=== PATIENT | female | born 1975 | race Caucasian/White ===

== ENCOUNTER 2024-01-15 07:20 | Outpatient (OUT) | payer SELFPAY ==
--- NOTE | 2024-01-15 07:24 | MM_ITS ---
Patient Name: EMMETT LE MR#: [id number] : 1975 Exam Date: 01/15/2024 Ordering Doctor: DR ALBERTO AGUAYO RADIOLOGY REPORT PROCEDURE: MM TOMOSYNTHESIS SCREENING BI COMPARISON: MG MAMM SCREEN 3D RUTHIE CAD, 12/10/2021. MG MAMM SCREEN 3D RUTHIE CAD, 12/15/2022. INDICATIONS: Screening Calculator Name NCI Breast Cancer Risk Assessment Tool 5 Year Breast Cancer Risk 1.30% Lifetime Breast Cancer Risk 12.50% Personal Breast Cancer No Personal Ovarian Cancer No Treatments None Family Cancers Father with prostate cancer at age ~70. LOCATION: [facility] BREAST COMPOSITION: The breasts are heterogeneously dense,which may obscure small masses. FINDINGS: DIAGNOSTIC CATEGORY 1--NEGATIVE. NO CHANGE FROM COMPARISON ASSESSMENT. RIGHT BREAST: No significant suspicious finding. LEFT BREAST: No significant suspicious finding. RECOMMENDATIONS: ROUTINE MAMMOGRAM AND CLINICAL EVALUATION IN 12 MONTHS. PLEASE NOTE: A NORMAL MAMMOGRAM DOES NOT EXCLUDE THE POSSIBILITY OF BREAST CANCER. A CLINICALLY SUSPICIOUS PALPABLE LUMP SHOULD BE BIOPSIED. Dictated by: Alessandro Whipple MD on 01/15/2024 at 11:15 Approved by: Alessandro Whipple MD on 01/15/2024 at 11:16
== END 2024-01-15 07:21 | disposition home or self-care (01) ==
LOC: MAMMO 07:20
PROVIDERS: PCP Family Medicine; Visit Provider Obstetrics & Gynecology
DX: Z12.31 Encounter for screening mammogram for malignant neoplasm of breast (principal); Z80.42 Family history of malignant neoplasm of prostate
CPT/HCPCS: 77063; 77067

== ENCOUNTER 2025-03-03 09:04 | Outpatient (OUT) | payer BC, SELFPAY ==
--- OUTSIDE RECORDS SUMMARY | 2025-03-03 09:09 | XMS_ITS | Encounter Summary ---
Author Organization [facility] Address [address] [place] [address] Care Team Providers Care Data Warehouse Consultant Name Role Phone Beau José DO Primary Care Provider Source Comments In the event this information is protected by the Federal Confidentiality of Alcohol and Drug AbusePatient Records regulations: The Federal rules restrict any use of the information to criminally investigate or prosecute any alcohol or drug abuse patient.[facility] Encounter Details Date Type Department Care Team (Late st Contact Info) Description 11/01/2022 Patient Msg Rheumatology [address] [phone] Provider, Ccf Appointment Rescheduled Social History Tobacco Use Types Packs/Day Years Used Date Smoking Tobacco: Former Cigarettes Q uit: 10/14/2019 Smokeless Tobacco: Former Alcohol Use Standard Drinks/Week Comments Not Currently 0 (1 standard drink = 0.6 oz pur e alcohol) Rarely AUDIT-C Answer Date Recorded Q1: How often do you have a drink containing alc ohol? Monthly or less 07/01/2020 Average Number of Drinks Not on file 020 Frequency of Binge Drinking Not on file 03/2020 PHQ-2 Answer Date Recorded PHQ-2 score 3 11/14/2021 Area Deprivation Index Answer Date Isaac rded National Score (1-100), lower number is lower ri 62 10/16/2022 State Score (1-10), lower number is lower risk N ot on file 10/16/2022 Data from: https://www.neighborhoodatlas.medicine.[facility].edu/. Last address used for calculation [address] 10/16/2022 Comments No Sex and Gender Information Value Date Recorded Sex Assigned at Not on file Legal Sex Female 12:02 PM EDT Gender Identity Not on file Sexual Orientation Not on file documented as of this encounter Plan of Treatment Upcoming Encounters Date Type Department Care Team (Late st Contact Info) Description 03/05/2025 9:00 AM EDT Office Visit Pulmonary Medicine [address] [place] [address] Pulmonary Hypertension: Please make arrangements for the following patient to have a RHC with Dr. Garner on 03/05 at 9am. 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] 03/31/2025 2:00 PM EDT Office Visit Pulmonary Medicine [address] [place] [address] Marlin Morris MD [address] [id number] EST PH pt 5 wk f/u w/Arturo 04/14/2025 10:00 AM EDT Office Visit Rheumatology [address] [address] Debra Ordonez MD [address] [place] [address] 6month follow up per walk up documented as of this encounter Visit Diagnoses Not on filedocumented in this encounter Care Teams Data Warehouse Consultant Relationship Specialty Start Date End Date Beau José DO [address] [place] [address] PCP - General Family Medicine 06/02/20 documented as of this encounter
--- OUTSIDE RECORDS SUMMARY | 2025-03-03 09:09 | XMS_ITS | Encounter Summary ---
Author Organization [facility] Address [address] [place] [address] Care Team Providers Care Spice Blender Name Role Phone Beau José DO Primary Care Provider Source Comments In the event this information is protected by the Federal Confidentiality of Alcohol and Drug AbusePatient Records regulations: The Federal rules restrict any use of the information to criminally investigate or prosecute any alcohol or drug abuse patient.[facility] Encounter Details Date Type Department Care Team (Late st Contact Info) Description 10/25/2022 Get Medical Advice Rheumatology [address] [place] [address] Debra Ordonez MD [address] [place], [place] [phone] Results Social History Tobacco Use Types Packs/Day Years [...] Score (1-100), lower number is lower ri sk 62 10/16/2022 State Score (1-10), lower number is lower risk N ot on file 10/16/2022 Data from: https://www.neighborhoodatlas.medicine.[facility]/. Last address used for calculation [address] [...] AM EDT Office Visit Pulmonary Medicine [address] [place] [address] Pulmonary Hypertension: Please make arrangements for the following patient to have a RHC with Dr. Garner on 03/05 at 9am. 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] 03/31/2025 2:00 PM EDT Office Visit Pulmonary Medicine [address] [address] Marlin Morris MD [address] [place] [address] EST PH pt 5 wk f/u w/Arturo 04/14/2025 10:00 AM EDT Office Visit Rheumatology [address] [address] Debra Ordonez MD [address] [place] [address] 6month follow up per walk up documented as of this encounter Visit Diagnoses Not on filedocumented in this encounter Care Teams Spice Blender Relationship Specialty Start Date End Date Beau José DO [address] [facility] [place] [address] PCP - General Family Medicine 06/02/20 documented as of this encounter
--- OUTSIDE RECORDS SUMMARY | 2025-03-03 09:09 | XMS_ITS | Encounter Summary ---
Author Organization [facility] Address [address] [place] [address] Care Team Providers Care Medical File Clerk Name Role Phone Beau José MD Primary Care Provider + [phone] Reason for Visit * Reason Comments Med Refill Encounter Details Date Type Department Care Team (Late st Contact Info) Description 02/12/2025 Refill [facility] [address] [place] [address] Albert Doshi, AIRCREWMAN [address] [place] [address] Social History Tobacco Use Types Packs/Day Years Used Date Smoking Tobacco: Former Cigarettes 0.5 5 1 11/22/2017 - 09/21/2023 Smokeless Tobacco: Never Alcohol Use Standard Drinks/Week Comments Yes 0 (1 standard drink = 0.6 oz pur e alcohol) Social AUDIT-C Answer Date Recorded Q1: How often do you have a drink containing alc ohol? Monthly or less 12/20/2023 Q2: How many drinks containi ng alcohol do you have on a typical day when you are drinking? 1 or 2 12/20/2023 Q3: How often do you have si x or more drinks on one occasion? Never 12/20/2023 PHQ-2 Answer Date Recorded Patient Health Questionnaire-2 Score 0 12/20/2023 Comments No Sex and Gender Information Value Date Recorded Sex Assigned at Not on file Legal Sex Female 7:33 PM EDT Gender Identity Not on file Sexual Orientation Not on file documented as of this encounter Plan of Treatment Upcoming Encounters Date Type Department Care Team (Late st Contact Info) Description 09/12/2025 9:00 AM EST Office Visit [facility] [address] [facility] [address] Greg Norris, DO [address] [facility] [address] [place] [address] documented as of this encounter Visit Diagnoses Not on filedocumented in this encounter Care Teams Medical File Clerk Relationship Specialty Start Date End Date Beau José MD PCP - General Family Medicine 02/14/23 documented as of this encounter
--- OUTSIDE RECORDS SUMMARY | 2025-03-03 09:09 | XMS_ITS | Encounter Summary ---
Author Organization [facility] Address [address] [facility] [place] [address] Care Team Providers Care Bacteriologist Food Name Role Phone Beau José MD Primary Care Provider [phone] Reason for Visit * Reason Comments Med Refill Encounter Details Date Type Department Care Team (Late st Contact Info) Description 01/28/2024 Refill [facility] [address] [place] [address] Albert Doshi, UNIV[employer] CONSULTANT [address] [place] [address] Unilateral primary osteoarthritis, left knee Social History Tobacco Use Types Packs/Day Years [...] on file documented as of this encounter Miscellaneous Notes * Telephone Encounter - Albert Doshi NP - 01/29/2024 1:51 PM EDT Patient needs appointment * Telephone Encounter - Albert Doshi NP - 01/29/2024 1:51 PM EDT Patient will need appointment if she would like refill. documented in this encounter Plan of Treatment Upcoming Encounters Date Type Department Care Team (Late st Contact Info) Description 09/12/2025 9:00 AM EST Office Visit [facility] [address] [place] [address] Greg Norris, DO [address] [facility] [address] [place] [address] documented as of this encounter Visit Diagnoses Diagnosis Unilateral primary osteoarthritis, left knee documented in this encounter Care Teams Bacteriologist Food Relationship Specialty Start Date End Date Beau José MD PCP - General Family Medicine 02/14/23 documented as of this encounter
--- OUTSIDE RECORDS SUMMARY | 2025-03-03 09:09 | XMS_ITS | Encounter Summary ---
Author Organization [facility] Address [address] [place] [address] Care Team Providers Care Wrapping Machine Operator Name Role Phone Beau José DO Primary Care Provider Source Comments In the event this information is protected by the Federal Confidentiality of Alcohol and Drug AbusePatient Records regulations: The Federal rules restrict any use of the information to criminally investigate or prosecute any alcohol or drug abuse patient.[facility] Encounter Details Date Type Department Care Team (Late st Contact Info) Description 07/07/2022 Patient Msg Cardiology [address] [phone] Provider, Ccf Appointment Cancellation Request Social History Tobacco Use Types Packs/Day Years [...] Score (1-100), lower number is lower ri Not on file 09/01/2020 State Score (1-10), lower number is lower risk N ot on file 09/01/2020 Data from: https://www.neighborhoodatlas.medicine.[facility].edu/. Last address used for calculation Not on file 09/01/2020 Comments No Sex and Gender Information Value Date Recorded Sex Assigned at Not on file Legal Sex Female 12:02 PM EDT Gender Identity Not on file Sexual Orientation Not on file documented as of this encounter Plan of Treatment Upcoming Encounters Date Type Department Care Team (Late st Contact Info) Description 03/05/2025 9:00 AM EDT Office Visit Pulmonary Medicine [address] [place] [address] Pulmonary Hypertension: Please make arrangements for the following patient to have a RHC with Dr. Garner on 03/05 at 9am. 03/19/2025 2:00 PM EDT Office Visit Neurology [address] [place] [address] If I have a problem with sleeping 03/20/2025 8:15 AM EDT Office Visit CARD [facility] 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.9] 03/31/2025 2:00 PM EDT Office Visit Pulmonary Medicine [address] [address] Marlin Morris MD [address] [phone] EST PH pt 5 wk f/u w/Arturo 04/14/2025 10:00 AM EDT Office Visit Rheumatology [address] [address] Debra Ordonez MD [address] [place], [place] [phone] 6month follow up per walk up documented as of this encounter Visit Diagnoses Not on filedocumented in this encounter Care Teams Wrapping Machine Operator Relationship Specialty Start Date End Date Beau José DO [address] [place] [address] PCP - General Family Medicine 06/02/20 documented as of this encounter
--- OUTSIDE RECORDS SUMMARY | 2025-03-03 09:09 | XMS_ITS | Encounter Summary ---
Author Organization [facility] Address [address] [place] [address] Care Team Providers Care Accounting Auditor Name Role Phone Beau José DO Primary Care Provider Source Comments In the event this information is protected by the Federal Confidentiality of Alcohol and Drug AbusePatient Records regulations: The Federal rules restrict any use of the information to criminally investigate or prosecute any alcohol or drug abuse patient.[facility] Encounter Details Date Type Department Care Team (Late st Contact Info) Description 10/05/2022 Patient Msg Rheumatology [address] [phone] Provider, Ccf FMLA Social History Tobacco Use Types Packs/Day Years [...] (1-100), lower number is lower ri sk Not on file 09/01/2020 State Score (1-10), lower number is lower risk N ot on file 09/01/2020 Data from: https://www.neighborhoodatlas.medicine.[facility].edu/. Last address used for calculation Not on [...] AM EDT Office Visit Pulmonary Medicine [address] [place] [address] Pulmonary Hypertension: Please make arrangements for the following patient to have a RHC with Dr. Garner on 03/05 at 9am. 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] 03/31/2025 2:00 PM EDT Office Visit Pulmonary Medicine [address] [address] Marlin Morris MD [address] [place], [place] [phone] EST PH pt 5 wk f/u w/Arturo 04/14/2025 10:00 AM EDT Office Visit Rheumatology [address] [address] Debra Ordonez MD [address] [place], [place] [phone] 6month follow up per walk up documented as of this encounter Visit Diagnoses Not on filedocumented in this encounter Care Teams Accounting Auditor Relationship Specialty Start Date End Date Beau José DO [address] [place] [address] PCP - General Family Medicine 06/02/20 documented as of this encounter
--- OUTSIDE RECORDS SUMMARY | 2025-03-03 09:09 | XMS_ITS | Encounter Summary ---
Author Organization [facility] Address [address] [place] [address] Care Team Providers Care Fee Clerk Name Role Phone Beau José DO Primary Care Provider Source Comments In the event this information is protected by the Federal Confidentiality of Alcohol and Drug AbusePatient Records regulations: The Federal rules restrict any use of the information to criminally investigate or prosecute any alcohol or drug abuse patient.[facility] Encounter Details Date Type Department Care Team (Late st Contact Info) Description 07/07/2022 Patient Msg Cardiology [address] [phone] Provider, Ccf Appointment Cancellation Request Social History [...] N ot on file 09/01/2020 Data from: https://www.neighborhoodatlas.medicine.[facility].edu/. Last address used for calculation Not [...] AM EDT Office Visit Pulmonary Medicine [address] [place] [address] Pulmonary Hypertension: Please make arrangements for the following patient to have a RHC with Dr. Garner on 03/05 at 9am. 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
--- OUTSIDE RECORDS SUMMARY | 2025-03-03 09:09 | XMS_ITS | Encounter Summary ---
Author Organization [facility] Address [address] [place] [address] Care Team Providers Care Motocross Racer Name Role Phone Beau José DO Primary Care Provider Source Comments In the event this information is protected by the Federal Confidentiality of Alcohol and Drug AbusePatient Records regulations: The Federal rules restrict any use of the information to criminally investigate or prosecute any alcohol or drug abuse patient.[facility] Encounter Details Date Type Department Care Team (Late st Contact Info) Description 09/30/2022 Get Medical Advice Rheumatology [address] [phone] Debra Ordonez MD [address] [place] [address] Vitamin d? Social History Tobacco Use Types Packs/Day Years [...] N ot on file 09/01/2020 Data from: https://www.neighborhoodatlas.medicine.[facility]/. Last address used for calculation Not on file 09/01/2020 Comments No Sex and Gender Information Value Date Recorded Sex Assigned at Not on file Legal Sex Female 12:02 PM EDT Gender Identity Not on file Sexual Orientation Not on file documented as of this encounter Plan of Treatment Upcoming Encounters Date Type Department Care Team ([facility] st Contact Info) Description 03/05/2025 9:00 AM EDT Office Visit Pulmonary Medicine [address] [place] [address] Pulmonary Hypertension: Please make arrangements for the following patient to have a RHC with Dr. Garner on 03/05 at 9am. 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 [place] [address] PCP - General Family Medicine 06/02/20 documented as of this encounter
--- OUTSIDE RECORDS SUMMARY | 2025-03-03 09:09 | XMS_ITS | Encounter Summary ---
Author Organization [facility] Address [address] [place] [id number] Care Team Providers Care Exhibits Curator Name Role Phone Beau José DO Primary Care Provider Source Comments In the event this information is protected by the Federal Confidentiality of Alcohol and Drug AbusePatient Records regulations: The Federal rules restrict any use of the information to criminally investigate or prosecute any alcohol or drug abuse patient.[facility] Reason for Visit * Reason Onset Date Comments Refill Request 10/22/2024 Encounter Details Date Type Department Care Team (Late st Contact Info) Description 10/22/2024 Refill Rheumatology [address] [id number] Debra Ordonez MD [address] [place] [id number] Refill Request Social History Tobacco Use Types Packs/Day [...] Frequency of Binge Drinking Not on file 100 03/2020 PHQ-2 Answer Date Recorded PHQ-2 score 3 10/05/2024 Area Deprivation Index Answer Date Isaac rded National Score (1-100), lower number is lower ri sk 59 02/01/2023 State Score (1-10), lower number is lower risk 4 02/01/2023 Data from: https://www.neighborhoodatlas.medicine.[facility]/. Last address used for calculation [address] 02/01/2023 Comments No Sex and Gender Information Value Date Recorded Sex Assigned at Not on file Legal Sex Female 12:02 PM EDT Gender Identity Not on file Sexual Orientation Not on file documented as of this encounter Miscellaneous Notes * Telephone Encounter - Jeaneth Manuel RN - 10/23/2024 9:52 AM EST Images from the original note were not included. Most recent Rheumatology visit: 10/09/2024 (with Debra Ordonez) Last Bone Density on file: None on file Rheumatology Care Team: None on file Recent Office Visits - This Specialty 10/09/2024 SOBOE (shortness of breath on exertion) Rheumatology Debra Ordonez MD 09/29/2023 Limited scleroderma (HCC) Rheumatology Debra Ordonez MD 08/02/2022 Limited scleroderma (HCC) Rheumatology Debra Ordonez MD Upcoming Rheumatology Appointments - Next 365 Days Visit Type Date Time Department [facility] 04/14/2025 10:00 AM [facility] A50 CBC: Latest Ref Rng & Units 09/29/2023 10/09/2024 CBC WBC 3.70 - 11.00 k/uL 6.80 7.45 Hemoglobin 11.5 - 15.5 g/dL 13.3 13.6 Hematocrit 36.0 - 46.0 % 41.4 41.7 Platelet Count 150 - 400 k/uL 215 233 Abs Neut (ANC) 1.45 - 7.50 k/uL 5.14 Abs Lymph 1.00 - 4.00 k/uL 1.72 Vitamin D: Latest Ref Rng & Units 09/29/2023 10/09/2024 Vitamin D Vitamin D 25 Hydroxy 31.0 - 80.0 ng/mL 33.7 34.3 LFT: Latest Ref Rng & Units 09/29/2023 10/09/2024 CMP Sodium 136 - 144 mmol/L 142 139 Potassium 3.7 - 5.1 mmol/L 4.6 4.4 Chloride 98 - 107 mmol/L 105 106 CO2 22 - 30 mmol/L 25 22 Glucose 74 - 99 mg/dL 89 68 BUN 7 - 21 mg/dL 11 16 Creatinine 0.58 - 0.96 mg/dL 0.82 0.73 Calcium 8.5 - 10.2 mg/dL 9.9 9.4 AST 13 - 35 U/L 23 24 ALT 7 - 38 U/L 18 14 Alkaline Phosphatase 34 - 123 U/L 66 71 Hepatic Function: Creatinine: Latest Ref Rng & Units 09/29/2023 10/09/2024 Creatinine Creatinine 0.58 - 0.96 mg/dL 0.82 0.73 ESR/CRP: Latest Ref Rng & Units 02/24/2020 10/09/2024 ESR, WSR WSR 0 - 20 mm/hr 2 5 Latest Ref Rng & Units 02/24/2020 10/09/2024 CRP CRP <0.9 mg/dL 0.1 <0.3 Uric Acid: None on file in the last 6 months Open Standing (Multiple Instance) Lab Orders None Open Future (Single Instance) Lab Orders None documented in this encounter Plan of Treatment Upcoming Encounters Date Type Department Care Team (Late st Contact Info) Description 03/05/2025 9:00 AM EDT Office Visit Pulmonary Medicine [address] [place] [address] Pulmonary Hypertension: Please make arrangements for the following patient to have a RHC with Dr. Garner on 03/05 at 9am. 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] 03/31/2025 1:30 PM EDT Procedure Cardiology [address] [address] Scleroderma, limited (HCC) [M34.9] 03/31/2025 2:00 PM EDT Office Visit Pulmonary Medicine [address] [place] [address] Marlin Morris MD [address] [place] [address] EST PH pt 5 wk f/u w/Arturo 04/14/2025 10:00 AM EDT Office Visit Rheumatology [address] [address] Debra Ordonez MD [address] [place], [place] [id number] 6month follow up per walk up documented as of this encounter Visit Diagnoses Not on filedocumented in this encounter Care Teams Exhibits Curator Relationship Specialty Start Date End Date Beau José DO [address] [facility] [address] PCP - General Family Medicine 06/02/20 documented as of this encounter
--- OUTSIDE RECORDS SUMMARY | 2025-03-03 09:09 | XMS_ITS | Clinical Summary ---
Author Organization [facility] Address [address] [place] [address] Care Team Providers Care Metallurgical Lab Technician Name Role Phone Beau José DO Primary Care Provider + [phone] Allergies Active Allergy Reactions Criticality Noted Date Comments Celecoxib 12/16/2015 Medications Multiple Vitamins-Mineral s (MULTIVITAMIN PO) Take by mouth Active CALCIUM PO Take by mouth Active Ascorbic Acid (VITAMIN C PO) Take by mouth Active Pantoprazole Sodium (PROTONIX PO) Take by mouth Active Active Problems Problem Noted Date Diagnosed Date Puncture wound of right arm with complication Social History Tobacco Use Types Packs/Day Years Used Date Smoking Tobacco: Former Cigarettes 1.5 10 1 11/19/1996 - 09/18/2007 Alcohol Use Standard Drinks/Week Comments Yes 0 (1 standard drink = 0.6 oz pur e alcohol) Comments Unknown Sex and Gender Information Value Date Recorded Sex Assigned at Not on file Legal Sex Female 9:07 PM EST Gender Identity Not on file Sexual Orientation Not on file Last Filed Vital Signs Vital Sign Reading Time Taken Comments Blood Pressure 128/82 01/13/2016 1:34 PM EDT Pulse 75 01/13/2016 1:34 PM EDT Temperature - - Respiratory Rate 18 01/13/2016 1:34 PM EDT Oxygen Saturation - - Inhaled Oxygen Concentration - - Weight 61.2 kg (135 lb) 01/13/2016 1:34 PM EDT s tated Height 152.4 cm (5') 01/13/2016 1:34 PM EDT stat ed Body Mass Index 26.37 01/13/2016 1:34 PM EDT Plan of Treatment Not on file Care Teams Metallurgical Lab Technician Relationship Specialty Start Date End Date Beau José DO PCP - General 01/13/16
--- OUTSIDE RECORDS SUMMARY | 2025-03-03 09:09 | XMS_ITS | Clinical Summary ---
Author Organization [facility] Address [address] [place] [address] Care Team Providers Care Aco Coordinator Name Role Phone Beau José MD Primary Care Provider [phone] Allergies No known active allergies Medications esomeprazole (NexIUM) [address] capsule 1 capsule every 12 (twelve) hours. Active PARoxetine (Paxil) 10 MG tablet 1 (one) time each day at the same time. Active loratadine (Claritin Reditabs) 10 MG disintegrating tablet Take 10 mg by mouth in the morning. Active Multiple Vitamin (Multi-Vitamin) tablet Take 1 tablet by mouth in the morning. Active busPIRone (Buspar) 5 MG tablet Take 5 mg by mouth Daily 4 Active NIFEdipine XL (Procardia XL) 60 MG 24 hr tablet Take 60 mg by mouth Daily 4 Active cycloSPORINE (Restasis) 0.05 % ophthalmic emulsion Administer 1 drop into both eyes every 12 (twelve) hours 4 Active Active Problems Problem Noted Date Diagnosed Date Abnormal cytological finding s in specimens from other organs, systems and tissues 02/14/2023 Acute pain of left knee 02/14/2023 Bowel incontinence 02/14/2023 Depression 02/14/2023 Disorder of breast 02/14/2023 Dyspareunia in female 02/14/2023 Hallux valgus (acquired), left foot 02/14/2023 Hallux valgus (acquired), right foot 02/14/2023 Internal derangement of left knee 02/14/2023 Unilateral primary osteoarthritis, left knee Perioral dermatitis 02/14/2023 Post-void dribbling 02/14/2023 Smoking 02/14/2023 Encounters Date Type Department Care Team Description 02/12/2025 Refill [facility] [address] [place] [id number] Albert Doshi, COMMUNICATIONS INSTRUCTOR from Last 3 Months Family History Medical History Relation Name Comments Cancer Father Dad Prostate cancer Father Dad Breast cancer Father's Sister Britta Diabetes Mother Mom Breast cancer Other Relation Name Status Comments Father Dad Father's Sister Britta Mother Mom Alive Other Paternal Aunt Social History Tobacco Use Types Packs/Day Years Used Date Smoking Tobacco: Former Cigarettes 0.5 5 1 11/22/2017 - 09/21/2023 Smokeless Tobacco: Never Tobacco Cessation:Counseling Given: Not Answered Alcohol Use Standard Drinks/Week Comments Yes 0 [...] Sign Reading Time Taken Comments Blood Pressure 118/80 08/30/2024 8:57 AM EST Pulse - - Temperature - - Respiratory Rate - - Oxygen Saturation - - Inhaled Oxygen Concentration - - Weight 54.4 kg (120 lb) 08/30/2024 8:57 AM EST Height 152.4 cm (5') 06/18/2023 10:48 PM EDT Body Mass Index 23.44 06/18/2023 10:48 PM EDT Plan of Treatment Upcoming Encounters Date Type Department Care Team (Late st Contact Info) Description 09/12/2025 9:00 AM EST Office Visit [facility] [address] [place] [address] Greg Norris, DO [address] [place] [address] Insurance BCBS Care Teams Aco Coordinator Relationship Specialty Start Date End Date Beau José MD PCP - General Family Medicine 02/14/23
--- OUTSIDE RECORDS SUMMARY | 2025-03-03 09:09 | XMS_ITS | Clinical Summary ---
Author Organization [facility] Address [address] [place] [address] Care Team Providers Care Residential Carpet Installer Name Role Phone Beau José DO Primary Care Provider Allergies No known active allergies Medications multivitamin tablet Take 1 tablet by mouth once daily. Active esomeprazole (NEXIUM) 40 mg capsule Take 40 mg by mouth twice daily. Active PARoxetine (PAXIL) 10 mg tablet Take 10 mg by mouth once daily. Active busPIRone (BUSPAR) 5 mg tablet Take 5 mg by mouth once daily. Active oxybutynin ER (DITROPAN XL) 10 mg 24 hr tabletIndicatio ns:Bladder spasm Take 1 tablet by mouth once daily as needed. 30 tablet 1 1 Active celecoxib (CELEBREX ORAL) Take by mouth. Active NIFEdipine ER (PROCARDIA XL) 60 mg 24 hr tablet Take 1 tablet by mouth once daily. 90 tablet 3 5 Active ASHWAGANDHA EXTRACT ORAL Take 150 mg by mouth once daily. Active cranberry extract-vitamin C 250-60 mg cap Take by mouth once daily. 025 Discontinued Lactobacillus acidophilus (PROBIOTIC ORAL) Take by mouth. 025 Discontinued nitrofurantoin monohyd/m-cryst (MACROBID ORAL) Take by mouth two times a day. 025 Discontinued OTC PRODUCT Immune defense with acai ferrer elderberry, goji ferrer, echinacea, turmeric, vitamin c, luís, zinc black currant 025 Discontinued OTC PRODUCT once daily. 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 Raynaud's phenomenon without gangrene 02/26/2020 Depressive disorder 02/24/2020 Irritable bowel syndrome 02/24/2020 Migraine 02/24/2020 Mitral valve prolapse 02/24/2020 Ulcerative esophagitis 12/01/2018 Esophageal dysmotility 01/01/2017 Anxiety 03/11/2016 Cyst of ovary 03/11/2016 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 Posttraumatic stress disorder 03/11/2016 Encounters Date Type Department Care Team Description 03/02/2025 Travel 02/28/2025 Orders Only Pulmonary Medicine [address] [address] Steve Garner, SOBOE (shortness of breath on exertion) (Primary Dx) 02/25/2025 Telephone Pulmonary Medicine [address] [address] Alessandro Díaz MA Appointment Confirmation 02/24/2025 Abstract [facility] [address] [facility] [place] [id number] [facility] 02/12/2025 Telephone Pulmonary Medicine [address] [address] Alessandro Díaz MA Care Coordination 02/10/2025 11:00 AM EDT Office Visit Pulmonary Medicine [address] [address] Marlin Morris MD 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 [place] [address] Other secondary pulmonary hypertension (HCC) [I27.29] Discharge Disposition: Home 01/28/2025 8:05 AM EDT - 01/28/2025 11:59 PM EDT Hospital Encounter Radiology [address] [place] [address] Interstitial pulmonary disease (HCC) [J84.9] Discharge Disposition: Home 01/21/2025 Travel 01/13/2025 9:00 AM EDT Office Visit Pulmonary Medicine [address] [place], [place] [address] Marlin Morris MD Interstitial pulmonary disease (HCC) (Primary Dx); Other secondary pulmonary hypertension (HCC); Pulmonary hypertension (HCC); History of tobacco use; Raynaud's phenomenon without gangrene; Palpitations 01/13/2025 8:15 AM EDT Procedure Pulmonary Medicine [address] [place] [id number] Yazan Butler Fct Lab Main 6 Spirometry 01/07/2025 Get Medical Advice Rheumatology [address] [place] [phone] Debra Del Valle MD Pulmonary appointment 01/01/2025 Orders Only Pulmonary Medicine [address] [place] [id number] Callie Pickens APRN.PRINTING TABLE HAND Primary pulmonary hypertension (HCC) (Primary Dx) 01/01/2025 Telephone Pulmonary Medicine [address] [place] [id number] Autumn Quispe, RN Opened In Error 01/01/2025 Get Medical Advice Rheumatology [address] [address] Debra Del Valle MD Test results 01/01/2025 Telephone Pulmonary Medicine [address] [address] Provider, [facility] Appointment 12/31/2024 Get Medical Advice Rheumatology [address] [address] Debra Del Valle MD Test results 12/18/2024 2:30 PM EDT Procedure Pulmonary Medicine [address] [address] Yazan Butler [facility]ct Lab Main 6 Spirometry 12/18/2024 2:15 PM EDT Procedure Pulmonary Medicine [address] [address] Yazan Butler Fct Lab Main 6 Spirometry 12/16/2024 Travel from Last 3 Months Immunizations Immunization Administration Dates Next Due tetanus diphtheria pertussis (Tdap) vaccine, age 7+ yr (ADACEL, BOOSTRIX) 06/21/2019,02/10/2012 Family History Medical History Relation Comments Prostate Cancer Father Cancer Maternal Grandfather Bone Breast Cancer Paternal Aunt Relation Status Comments Father Maternal Grandfather Paternal Aunt Social History Tobacco Use Types [...] is lower risk 4 02/01/2023 Data from: https://www.neighborhoodatlas.medicine.[facility].edu/. Last address used for calculation [address] 02/01/2023 Comments No Sex and Gender Information Value Date Recorded Sex Assigned at Not on file Legal Sex Female 12:02 PM EDT Gender Identity Not on file Sexual Orientation Not on file Last Filed Vital Signs Vital Sign Reading Time Taken Comments Blood Pressure 118/60 02/10/2025 10:52 AM EDT Pulse 64 02/10/2025 10:52 AM EDT Temperature 36.5 C (97.7 F) 02/10/2025 10:52 AM EDT Respiratory Rate 16 02/10/2025 10:52 AM EDT Oxygen Saturation 100% 02/10/2025 10:52 AM EDT Inhaled Oxygen Concentration - - Weight 55 kg (121 lb 4.1 oz) 02/10/2025 10:52 AM EDT Height 152.4 cm (5') 01/13/2025 8:12 AM EDT Body Mass Index 23.68 01/13/2025 8:12 AM EDT Plan of Treatment Upcoming Encounters Date Type Department Care Team (Late st Contact Info) Description 03/05/2025 9:00 AM EDT Office Visit Pulmonary Medicine [address] [place] [address] Pulmonary Hypertension: Please make arrangements for the following patient to have a RHC with Dr. Garner on 03/05 at 9am. 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.89, N08] 03/31/2025 1:30 PM EDT Procedure Cardiology [address] [address] Scleroderma, limited (HCC) [M34.9] 03/31/2025 2:00 PM EDT Office Visit Pulmonary Medicine [address] [address] Marlin Morris MD [address] [address] EST PH pt 5 wk f/u w/Arturo 04/14/2025 10:00 AM EDT Office Visit Rheumatology [address] [address] Debra Del Valle MD [address] [place] [address] 6month follow up per walk up Health Maintenance Due Date Last Done Comments Hepatitis B Vaccine (1 of 3 - 19+ 3-dose series) 1994 Cervical Cancer Screening 1996 CT Colonography 2020 Fecal Occult Blood 2020 Sigmoidoscopy 2020 Mammogram Screening 12/16/2023 12/15/2022, 12/10/2021, 12/07/2021, Additional history exists Colonoscopy 02/02/2024 02/01/2023 Covid-19 Vaccine ( - 2023-2 5 season) 2024 Cologuard (FIT-DNA) 11/02/2024 11/02/2021 Colorectal Cancer Screening 11/02/2024 Influenza Vaccine (Season Ended) 2025 Diabetes Screening 10/09/2027 10/09/2024, 0 09/29/2023, 08/16/2023, Additional history exists Lipid Screening 08/16/2028 08/16/2023 DTaP,Tdap,Td Vaccine (3 - Td or Tdap) 06/21/2029 06/21/2019, 02/10/2012 HIV Screening Completed 01/13/2025 Hepatitis C Screening Completed 01/13/2025 , 01/13/2025, 06/12/2020 Procedures Procedure Name Priority Date/Time Associated Diagnosis Comments NM LUNG VENT / PERF VQ Routine 9:28 AM EDT Other secondary pulmonary hypertension (HCC) CT CHEST WO IVCON Routine 01/28/2025 8:2 2 AM EDT Interstitial pulmonary disease (HCC) HEP B CORE AB TOTAL Routine 01/13/2025 1 0:42 AM EDT Other secondary pulmonary hypertension (HCC) HEP B SURF AB QUAL Routine 01/13/2025 10 :42 AM EDT Other secondary pulmonary hypertension (HCC) HEP B SURF AG SCRN Routine 01/13/2025 10 :42 AM EDT Other secondary pulmonary hypertension (HCC) HEPATITIS C ANTIBODY IA WITH CONFIRMATION Routine 01/13/2025 10:42 AM EDT Other secondary pulmonary hypertension (HCC) HIV 1/2 COMBO WITH REFLEX TO DIFFERENTIATION Routine 01/13/2025 10:42 AM EDT Other secondary pulmonary hypertension (HCC) TSH W/REFLEX FT4 Routine 01/13/2025 10:4 2 AM EDT Other secondary pulmonary hypertension (HCC) NT PRO BNP Routine 01/13/2025 10:42 AM EDT Other secondary pulmonary hypertension (HCC) HEP REMOTE PANEL BL Routine 01/13/2025 1 0:42 AM EDT Other secondary pulmonary hypertension (HCC) SIX MINUTE WALK Routine 01/13/2025 8:14 AM EDT Primary pulmonary hypertension (HCC) LVEF TRANSTHORACIC ECHO Routine 12/19/19 3:13 PM EDT ECHO Routine 12/18/2024 3:13 PM EDT SOBOE (shortness of breath on exertion) Limited scleroderma (HCC) LUNG DIFFUSION CAPACITY (DLCO) Routine 12/18/2024 1:48 PM EDT SOBOE (shortness of breath on exertion) Limited scleroderma (HCC) SPIROMETRY BASELINE ONLY Routine 12/18/2024 1:48 PM EDT SOBOE (shortness of breath on exertion) Limited scleroderma (HCC) COMPREHENSIVE METABOLIC PANEL Routine 10/09/2024 10:34 AM EST SOBOE (shortness of breath on exertion) Limited scleroderma (HCC) COLONOSCOPY (THERAPEUTIC) Routine 02/01/2023 10:30 AM EDT from Last 3 Months or Most Recently Relevant to Health Maintenance Results * NM LUNG VENT / PERF VQ (01/28/2025 9:28 AM EDT) Anatomical Region Laterality Modality Lung Nuclear Medicine 01/28/2025 9:28 AM EDT Impressions 01/28/2025 9:55 AM EDT IMPRESSION: No mismatched perfusion defects. Very low probability exam for acute pulmonary embolism. Cook Sauce: PSCB Transcribe Date/Time: Jan 28 2025 9:42A Dictated by : JAMEY FERNANDEZ DO This examination was interpreted and the report reviewed and electronically signed by: JAMEY FERNANDEZ DO on Jan 28 2025 9:53AM EST Narrative 01/28/2025 9:55 AM EDT * * *Final Report* * * DATE OF EXAM: Jan 28 2025 9:28AM FVN 0032 - NM LUNG VENT / PERF VQ / PROCEDURE REASON: Other secondary pulmonary hypertension (HCC) * * * * Physician Interpretation * * * * EXAMINATION: PULMONARY VENTILATION/PERFUSION SCAN CLINICAL HISTORY: Pulmonary hypertension. TECHNIQUE: 0.8 millicuries of Tc-99m DTPA aerosol was inhaled. 6.0 millicuries of Tc-99m MAA was administered IV. Static planar pulmonary ventilation and perfusion images obtained in anterior, posterior, lateral, and oblique projections. COMPARISON: No prior V/Q scan available CORRELATION: CT chest 01/28/2025 RESULT: Exam Interpretation criteria: Modified PIOPED II Ventilation: Fairly homogenous radiotracer accumulation in both lungs. Perfusion: No mismatched or matched defects. Procedure Note Provider, [facility] [place] - 01/28/2025 * * *Final Report* * * DATE OF EXAM: Jan 28 2025 9:28AM FVN 0032 - NM LUNG VENT / PERF VQ / PROCEDURE REASON: Other secondary pulmonary hypertension (HCC) * * * * Physician Interpretation * * * * EXAMINATION: PULMONARY VENTILATION/PERFUSION SCAN CLINICAL HISTORY: Pulmonary hypertension. TECHNIQUE: 0.8 millicuries of Tc-99m DTPA aerosol was inhaled. 6.0 millicuries of Tc-99m MAA was administered IV. Static planar pulmonary ventilation and perfusion images obtained in anterior, posterior, lateral, and oblique projections. COMPARISON: No prior V/Q scan available CORRELATION: CT chest 01/28/2025 RESULT: Exam Interpretation criteria: Modified PIOPED II Ventilation: Fairly homogenous radiotracer accumulation in both lungs. Perfusion: No mismatched or matched defects. IMPRESSION IMPRESSION: No mismatched perfusion defects. Very low probability exam for acute pulmonary embolism. Cook Sauce: STEVE Transcribe Date/Time: Jan 28 2025 9:42A Dictated by : JAMEY FERNANDEZ DO This examination was interpreted and the report reviewed and electronically signed by: JAMEY FERNANDEZ DO on Jan 28 2025 9:53AM EST us Marlin Morris MD NM-PAMA Final Result * CT CHEST WO IVCON (01/28/2025 8:22 AM EDT) Anatomical Region Laterality Modality Chest Computed Tomogra phy 01/28/2025 8:22 AM EDT Impressions 01/28/2025 8:33 AM EDT IMPRESSION: No major interval change compared to prior examination with no convincing findings of developing pulmonary fibrosis. There is again dilatation of the entire esophagus in keeping with history of scleroderma. Cook Sauce: [facility] Transcribe Date/Time: Jan 28 2025 8:27A Dictated by : GALE DEJESUS MD This examination was interpreted and the report reviewed and electronically signed by: GALE DEJESUS MD on Jan 28 2025 8:31AM EST Narrative 01/28/2025 8:33 AM EDT * * *Final Report* * * DATE OF EXAM: Jan 28 2025 8:22AM FVC 0541 - CT CHEST WO IVCON / PROCEDURE REASON: Interstitial pulmonary disease (HCC) * * * * Physician Interpretation * * * * EXAMINATION: CHEST CT WITHOUT CONTRAST CLINICAL HISTORY: Interstitial lung disease Technique: Spiral CT acquisition of the chest from the thoracic inlet to the upper abdomen without contrast. MQ: CTCWO_6 CT Radiation dose: Integrated Dose-length product (DLP) for this visit = 131 mGy*cm CT Dose Reduction Employed: Automated exposure control(AEC) and iterative recon Comparison: 03/17/2021 RESULT: Limitations: None. Lines, tubes, and devices: None. Lung parenchyma and airways: No consolidation. No suspicious pulmonary nodule. The central airways are patent. No findings of interlobular septal thickening, traction bronchiectasis and honeycombing. No groundglass opacities. There is no air trapping. No findings of excessive dynamic airway collapse. Pleural space: No pleural effusion. No pleural thickening. Lower neck, lymph nodes, and mediastinum: The imaged thyroid gland is normal. No lymphadenopathy in the supraclavicular, axillary, mediastinal, or hilar regions. The entire esophagus is again markedly dilated and contains debris. Heart, pericardium, and thoracic vessels: The thoracic aorta and main pulmonary artery are normal in caliber. The cardiac chambers are normal in size. No coronary artery atherosclerotic calcifications are noted, although the study is not optimized for coronary assessment. No pericardial effusion or thickening. Bones and soft tissues: No destructive bone lesion. Chest wall is unremarkable. Upper abdomen: No abnormality in the imaged upper abdomen. Localizer images: No additional findings. Procedure Note Provider, [facility] - 01/28/2025 * * *Final Report* * * DATE OF EXAM: Jan 28 2025 8:22AM FVC 0541 - CT CHEST WO IVCON / PROCEDURE REASON: Interstitial pulmonary disease (HCC) * * * * Physician Interpretation * * * * EXAMINATION: CHEST CT WITHOUT CONTRAST CLINICAL HISTORY: Interstitial lung disease Technique: Spiral CT acquisition of the chest from the thoracic inlet to the upper abdomen without contrast. MQ: CTCWO_6 CT Radiation dose: Integrated Dose-length product (DLP) for this visit = 131 mGy*cm CT Dose Reduction Employed: Automated exposure control(AEC) and iterative recon Comparison: 03/17/2021 RESULT: Limitations: None. Lines, tubes, and devices: None. Lung parenchyma and airways: No consolidation. No suspicious pulmonary nodule. The central airways are patent. No findings of interlobular septal thickening, traction bronchiectasis and honeycombing. No groundglass opacities. There is no air trapping. No findings of excessive dynamic airway collapse. Pleural space: No pleural effusion. No pleural thickening. Lower neck, lymph nodes, and mediastinum: The imaged thyroid gland is normal. No lymphadenopathy in the supraclavicular, axillary, mediastinal, or hilar regions. The entire esophagus is again markedly dilated and contains debris. Heart, pericardium, and thoracic vessels: The thoracic aorta and main pulmonary artery are normal in caliber. The cardiac chambers are normal in size. No coronary artery atherosclerotic calcifications are noted, although the study is not optimized for coronary assessment. No pericardial effusion or thickening. Bones and soft tissues: No destructive bone lesion. Chest wall is unremarkable. Upper abdomen: No abnormality in the imaged upper abdomen. Localizer images: No additional findings. IMPRESSION IMPRESSION: No major interval change compared to prior examination with no convincing findings of developing pulmonary fibrosis. There is again dilatation of the entire esophagus in keeping with history of scleroderma. Cook Sauce: PSCB Transcribe Date/Time: Jan 28 2025 8:27A Dictated by : GALE DEJESUS MD This examination was interpreted and the report reviewed and electronically signed by: GALE DEJESUS MD on Jan 28 2025 8:31AM EST us Marlin Morris MD CT-PAMA Final Result * TSH W/REFLEX FT4 (01/13/2025 10:42 AM EDT) TSH 1.480 0.270 - 4.200 mIU/L 01/13/2025 3:16 PM EDT [facility] Comment: If the patient is , TSH reference range varies by gestational period: First Trimester (weeks 9-12): 0.180-2.990 mIU/L Second Trimester: 0.110-3.980 mIU/L Third Trimester: 0.480-4.710 mIU/L Hernán Goldstein et al. A Practical Approach for the Verifications and Determination of Site- and Trimester-Specific Reference Intervals for Thyroid Function tests in . Thyroid, 2019:29:3:412-420. Jason Morejon, et al. 2017 Guidelines of the [place] Thyroid Association for the Diagnosis and Management of Thyroid Disease during and the . Thyroid, 2017:27:3:315-389. Blood BLOOD SPECIMEN / Unknown Venipuncture / Unknown 01/13/2025 10:42 AM EDT 01/13/2025 10:42 AM EDT us Marlin Morris MD LABORATORY Final Result [facility] [address] [address], [place] * HIV 1/2 COMBO WITH REFLEX TO DIFFERENTIATION (01/13/2025 10:42 AM EDT) HIV 12 Combo (Ag/Ab) Nonreactive Nonreactive 01/13/2025 2:20 PM EDT [facility] HIV-1/2 AB (Confirmatory) 01/13/2025 2:20 PM EDT [facility] Comment:Test not indicated. HIV Interpretation 01/13/2025 2:20 PM EDT [facility] Comment: No evidence of HIV-1 or HIV-2 infection. Should recent infection be suspected, repeat testing may be considered 2-3 weeks after this draw. [place] Rev. Code 3701.243(E): This information has been disclosed to you from confidential records protected from disclosure by state law. You shall make no further disclosure of this information without the specific, written, and informed release of the individual to whom it pertains or as otherwise permitted by state law. A general authorization for the release of medical or other information is not sufficient for the purpose of the release of HIV test results or diagnoses. Blood BLOOD SPECIMEN / Unknown Venipuncture / Unknown 01/13/2025 10:42 AM EDT 01/13/2025 10:42 AM EDT Marlin Morris MD LABORATORY Final Result [facility] [address] [address], [place] * NT PRO BNP (01/13/2025 10:42 AM EDT) NT Pro BNP 75 <125 pg/mL 01/13/2025 3:15 PM EDT [facility] Blood BLOOD SPECIMEN / Unknown Venipuncture / Unknown 01/13/2025 10:42 AM EDT 01/13/2025 10:42 AM EDT Marlin Morris MD LABORATORY Final Result [facility] [address] [facility] [address] [address], [place] * HEPATITIS B SURFACE ANTIGEN (01/13/2025 10:42 AM EDT) HBsAg Negative Negative 01/13/2025 2:19 PM EDT [facility] Blood BLOOD SPECIMEN / Unknown Venipuncture / Unknown 01/13/2025 10:42 AM EDT 01/13/2025 10:42 AM EDT Marlin Morris MD LABORATORY Final Result Performing Organization Address [facility]/ZIP Co de Phone Number [facility] [address] [place] [id number], [place] * HEPATITIS B SURFACE ANTIBODY (01/13/2025 10:42 AM EDT) Hep B Surface Ab, Qual Negative 01/13/2025 2:20 PM EDT [facility] Comment:No serological evide nce of immunity to Hepatitis B Virus. Hep B Surface Ab Quant <8.00 mIU/mL 01/13/2025 2:20 PM EDT [facility] Comment: <8 mIU/mL: No serological evidence of immunity to Hepatitis B Virus. >/= 8 to <12 mIU/mL: No serological evidence of immunity to Hepatitis B Virus. >/= 12 mIU/mL: Consistent with serological evidence of immunity to Hepatitis B Virus. Blood BLOOD SPECIMEN / Unknown Venipuncture / Unknown 01/13/2025 10:42 AM EDT 01/13/2025 10:42 AM EDT Marlin Morris MD LABORATORY Final Result Performing Organization Address City/[facility]/ZIP Co de Phone Number [facility] [address] [place] [id number], [place] * HEPATITIS B CORE ANTIBODY TOTAL (01/13/2025 10:42 AM EDT) Hepatitis B Core Ab, Total Negative Negative 01/13/2025 2:22 PM EDT [facility] Comment:No evidence of curre nt or past infection with Hepatitis B virus. Should recent infection be suspected, repeat testing may be considered 3-4 weeks after this draw. Blood BLOOD SPECIMEN / Unknown Venipuncture / Unknown 01/13/2025 10:42 AM EDT 01/13/2025 10:42 AM EDT us Marlin Morris MD LABORATORY Final Result Performing Organization Address City/[facility]/ZIP Co de Phone Number [facility] [address] [place] [address], * HEPATITIS C ANTIBODY IA WITH CONFIRMATION (01/13/2025 10:42 AM EDT) [facility] Hep C Antibody IA Negative Negative 01/13/2025 4:23 PM EDT [facility] Comment:The result suggests no evidence of infection with Hepatitis C virus. Should recent infection be suspected, repeat testing may be considered 4-6 weeks after this draw. Blood BLOOD SPECIMEN / Unknown Venipuncture / Unknown 01/13/2025 10:42 AM EDT 01/13/2025 10:42 AM EDT Marlin Morris MD LABORATORY Final Result Performing Organization Address [facility] Co de Phone Number [facility] [address] [place] [address], * SIX MINUTE WALK (01/13/2025 8:14 AM EDT) 01/13/2025 8:14 AM EDT Narrative Donaldo Lemus MD - 01/13/2025 8:15 AM EDT Donaldo Lemus MD 01/13/2025 8:52 AM RESPIRATORY THERAPY SIX MINUTE WALK TEST OXIMETRY REPORT Six Minute Walk Test for This Encounter Oxygen Device Liters FIO2 SpO2% HR Activity Feet Speed (MPH) Flag R/A 100 71 Resting R/A 99 89 Six Minute Walk 1165 2.2 R/A 100 78 Recovery 1 minute post R/A 100 70 Recovery 2 minute post R/A 100 66 Recovery 3 minute post General Information Height Weight Pulse Oximetry Site Oximeter Pre Blood Pressure Post Blood Pressure Total Time Spent (min) 152.4 cm (5') 54.8 kg (120 lb 13 oz) Forehead Masimo 134/75 135/71 30 _ Distance Walked (meters) Distance Walked (feet) Female Predicted Walk Distance (feet) Female Lower Limit of Normal (feet) Female % Predicted Total Duration Of The Stops (seconds) 355.09 1165 1902.56 1446.56 61.2 -- _ Lowest SpO2 During 6 Minute Walk Pre-Lizzeth Dyspnea Rating Pre-Lizzeth Fatigue Rating Post Lizzeth Dyspnea Rating Post Lizzeth Fatigue Rating 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 complained of slight chest pain to begin the test and that increased to moderate post test; Pt stated slight chest pain is her normal The patient completed the six minute walk test with No stops. . The patient required Room Air to complete the test. The distance the patient walked in six minutes is moderately reduced. This is the first time patient takes the six minute walk test. The patient perceived their dyspnea during the six minute walk test to be 3-Moderate on the modified Lizzeth scale. The patient perceived their fatigue during the six minute walk test to be 1-Very slight on the modified Lizzeth scale. I have reviewed the findings and made appropriate revisions as needed. SIGNATURE: Donaldo Lemus MD PATIENT NAME: Emmett Qiu DATE: January 13, 2025 TIME: 8:52 AM us Callie Pickens SENIOR IT ARCHITECT.PRINTING TABLE HAND SCHEDULED PROCEDURES Final Result * ECHO (12/18/2024 3:13 PM EDT) 12/18/2024 3:13 PM EDT [facility] - 12/18/2024 4:06 PM EDT CONCLUSIONS: - Exam indication: Dyspnea on exertion - The left ventricle is normal in size. Left ventricular systolic function is normal. EF = 68 5% (2D biplane) Grade I left ventricular diastolic dysfunction. - The right ventricle is normal in size. Right ventricular systolic function is normal. - Estimated right ventricular systolic pressure is likely underestimated due to a weak or incomplete tricuspid regurgitation signal and is, at least, 42 mmHg consistent with mild pulmonary hypertension. Estimated right atrial pressure is 15 mmHg based on IVC assessment. - Exam was compared with the prior CC echocardiographic exam performed on 10/18/2022. RVSP higher today. * * * Final * * * [facility] - 12/18/2024 4:06 PM EDT Echocardiography Report: Transthoracic Echo [facility] A17 Date of service: 12/18/2024 3:13:43 PM SCHEDULER Ordering physician: DEBRA DEL VALLE Indication: Dyspnea on exertion Technologist: Esther Patel Interpreting physician: Raffy Karimi MD PATIENT: Name: EMMETT QIU : 1975 Age: 49 years Gender: F History of Limited Scleroderma. Primary rhythm: sinus. Height: 152.40 cm BSA: 1.52 m Weight: 54.70 kg BMI: 23.6 kg/m Heart rate 60 bpm Blood pressure 132/69 mmHg Color Doppler was utilized to interrogate the cardiac valves assessed and spectral Doppler was utilized to determine the flow velocities and pressure gradients reported in this exam. MEASUREMENTS: Value Indexed Normal Max aortic dimension 3.0 cm Ao < 3.8 Left atrial volume 43 ml (Adame's) 28 ml/m Lizbeth <= 34 LV ID (diastole) 4.2 cm (2D) 2.73 cm/m LV ID (systole) 2.7 cm (2D) 1.78 cm/m IVS, leaflet tips 1.2 cm (2D) Posterior wall thickness 1.1 cm (2D) Left ventricular mass 160 g (2D) 105 g/m LV stroke volume 56 ml (2D biplane) LV end diastolic volume 83 ml (2D biplane) 54.4 ml/m 29<=EDVi<62 LV end systolic volume 27 ml (2D biplane) 17.6 ml/m Ejection Fraction 68 % (2D biplane) EF > 54 FINDINGS: LEFT VENTRICLE The left ventricle is normal in size. Left ventricular systolic function is normal. Grade I left ventricular diastolic dysfunction. Mitral annular lateral E/e': 8.5. Mitral annular septal E/e': 10.7. Wall Motion: All scored segments are normal. RIGHT VENTRICLE The right ventricle is normal in size. Right ventricular systolic function is normal globally. RV systolic tissue Doppler velocity is 14.6 cm/s. Tricuspid annular displacement is 3.4 cm. Estimated right ventricular systolic pressure is likely underestimated due to a weak or incomplete tricuspid regurgitation signal and is, at least, 42 mmHg consistent with mild pulmonary hypertension. Estimated right atrial pressure is 15 mmHg based on IVC assessment. LEFT ATRIUM The left atrial cavity is normal in size. Pulmonary Veins: The pulmonary venous pattern showed normal systolic flow. RIGHT ATRIUM Unable to reliably measure RA volume due to technical limitations. Inferior Vena Cava: The inferior vena cava appears dilated measuring 2.2 cm. The vessel decreases less than 50 percent with inspiration. MITRAL VALVE There is trace mitral valve regurgitation. There is mild thickening. The pressure half time is 44 msec. The peak mitral E/A ratio is 2.02. The average mitral E/e' ratio is 9.6. The mitral flow deceleration time is 153 msec. TRICUSPID VALVE The tricuspid valve leaflets are structurally normal. There is trace (trace - 1+) tricuspid valve regurgitation. AORTIC VALVE There is trace aortic valve regurgitation. Tricuspid aortic valve. There is mild thickening. PULMONIC VALVE The pulmonic valve cusps are structurally normal. There is trace pulmonic valve regurgitation. AORTA The visualized aorta is normal in size. Measurements - Sinus: 2.8 cm. Mid ascending aorta 3.0 cm. INTERATRIAL SEPTUM There is no evidence of intracardiac shunting as detected by Doppler. PERICARDIUM There is no pericardial effusion. us Debra Del Valle MD ECHO Final Resul t [facility] [address] [place] [address] * LVEF TRANSTHORACIC ECHO (12/18/2024 3:13 PM EDT) LV Ejection Fraction 68 % [facility] Comment: (2D biplane) EF > 54 An LV Ejection Fraction of > 50% is normal 12/18/2024 3:13 PM EDT us Debra Del Valle MD LVEF RESULTS Final Resul t [facility] [place] [address] * LUNG DIFFUSION CAPACITY (DLCO) (12/18/2024 1:48 PM EDT) 12/18/2024 1:48 PM EDT Narrative [facility] - 12/23/2024 10:38 AM EDT [facility] [address] [place] [address] Ave[address] [place] [address] Test Date: 2024-12-18 Pat Name: EMMETT QIU Department: Room: Gender: Female Specialist Wound Care: : 1975 Requested By: Order Number: [id number] Reading MD: Jose Aranda MD Interpretive Statements Current ATS/ERS acceptability and repeatability standards for spirometry met. Start of test and EOFE criteria met. Current ATS/ERS acceptability and repeatability standards for DLCO met with 2 acceptable maneuvers.//NF IMPRESSION: Spirometry reveals a reduced FEV1/FVC with normal FEV1 and FVC values. This could reflect a normal presentation or could indicate mild obstruction. Clinical correlation recommended. The diffusion capacity (uncorrected for hemoglobin) is normal. Electronically Signed On 12-23-2024 10:38:39 EDT by Jose Aranda MD ID: [id number] Name: EMMETT QIU Race: White Ht: 60.04 in Wt: 119.27 lbs Age: 49 Gender: Female : 1975 Dx: Shortness of breath Smoking Hx: Smoker Doctor: DEBRA DEL VALLE Test Date: 12/18/2024 Site: Tech: Jamey Monge PRE-BRONCH POST-BRONCH Melissa LLN Pred ULN %Pred ZScore Melissa %Pred %Chg ZScore SPIROMETRY FVC 3.44 2.05 2.75 3.46 125 1.60 FEV1 2.34 1.68 2.28 2.84 102 0.18 FEV1/FVC 0.68 0.71 0.82 0.91 82 -1.98 FEFMax 4.74 4.66 6.17 7.67 76 -1.56 FEF50 2.08 1.67 3.28 4.88 63 -1.22 FIF50 4.52 FEF50/FIF50 0.46 90-100 FIVC 3.22 TZX52-57 1.35 1.43 2.53 3.92 53 -1.79 ExpiredTime 7.56 TimeToFEFMax 0.09 CALLUM 0.06 VolExtrap% 2 LUNG DIFFUSION DLCOunc 16.29 15.04 21.20 27.37 76 -1.31 DLCOStdPB 16.10 15.04 21.20 27.37 75 -1.36 VA 4.66 3.31 4.41 5.51 105 0.37 Kco 3.50 3.53 4.51 5.61 77 -1.70 Comments: Current ATS/ERS acceptability and repeatability standards for spirometry met. Start of test and EOFE criteria met. Current ATS/ERS acceptability and repeatability standards for DLCO met with 2 acceptable maneuvers.//NF us Debra Del Valle MD SCHEDULED PROCEDURES Final Result [facility] [address] [facility] [place] [address] * SPIROMETRY BASELINE ONLY (12/18/2024 1:48 PM EDT) FVC PRE (L) 3.44 L PULMONAR Y FUNCTION LAB FVC PREDICTED (L) 2.75 L PULMONARY FUNCTION LAB FVC LLN (L) 2.05 L PULMONAR Y FUNCTION LAB FVC ULN (L) 3.46 L PULMONAR Y FUNCTION LAB FEV1 PRE (L) 2.34 L PULMONA RY FUNCTION LAB FEV1 PREDICTED (L) 2.28 L PULMONARY FUNCTION LAB FEV1 LLN (L) 1.68 L PULMONA RY FUNCTION LAB FEV1 ULN (L) 2.84 L PULMONA RY FUNCTION LAB FEV1/FVC PRE (%) 68 % [facility]ULMON[facility] FUNCTION LAB FEV1/FVC PREDICTED (%) 82 % PULMONARY FUNCTION LAB FEV1/FVC LLN (%) 71 % PULMONARY FUNCTION LAB FEF25% PRE (L/S) 3.67 L/S PULMONARY FUNCTION LAB FEF75% PRE (L/S0 0.40 L/S PULMONARY FUNCTION LAB FEF75% PREDICTED (L/S) 0.82 L/S PULMONARY FUNCTION LAB FEF75% LLN (L/S) 0.36 L/S PULMONARY FUNCTION LAB FEF75% ULN (L/S) 1.70 L/S PULMON[facility] FUNCTION LAB FXS66-06% PRE (L/S) 1.35 L/S [facility]MON[facility] FUNCTION LAB BQN99-07% PREDICTED (L/S) 2.53 L/S PULMONARY FUNCTION LAB LGV26-64% LLN (L/S) 1.43 L/S PULMONARY FUNCTION LAB PEF PRE (L/S) 4.74 L/S PULMON [place] FUNCTION LAB PEF LLN (L/S) 4.66 L/S PULMON [place] FUNCTION LAB PEF ULN (L/S) 7.67 L/S PULMON [place] FUNCTION LAB SVC PREDICTED (L) 2.75 L/S PULMONARY FUNCTION LAB SVC LLN (L) 2.05 L/S PULMONAR Y FUNCTION LAB SVC ULN (L) 3.46 L/S PULMONAR Y FUNCTION LAB IC PREDICTED (L) 1.83 L/S PULMONARY FUNCTION LAB ERV PREDICTED (L) 0.92 L/S P[facility] FUNCTION LAB DLCO (ml/min/mmHg) 16.29 ml/min/mmH g PULMONARY FUNCTION LAB DLCO PREDICTED (ml/min/mmHg) 21.20 ml/min/mmH g PULMONARY FUNCTION LAB DLCO LLN (ml/min/mmHg) 15.04 ml/min/mmH g PULMONARY FUNCTION LAB DLCO ULN (ml/min/mmHg) 27.37 ml/min/mmH g PULMONARY FUNCTION LAB FET PRE (S) 7.56 S PULMONAR Y FUNCTION LAB VA (L) 4.66 L PULMONARY FUNCTION LAB VA PREDICTED (L) 4.41 L PULMONARY FUNCTION LAB DLCO/VA (ml/min/mmHg/L) 0.03 ml/min/mmH g/L PULMONARY FUNCTION LAB DLCO/VA PREDICTED (ml/min/mmHg/L) 0.05 ml/min/mmH g/L PULMONARY FUNCTION LAB DLCOcor PREDICTED (ml/min/mmHg) 21.20 ml/min/mmH g [facility] 12/18/2024 1:48 PM EDT Narrative PUL[facility] - 12/23/2024 10:38 AM EDT [facility] [address], [address] [place] [address] Test Date: 2024-12-18 Pat Name: EMMETT QIU Department: Room: Gender: Female Specialist Wound Care: : 1975 Requested By: Order Number: [id number] Reading MD: Jose Aranda MD Interpretive Statements Current ATS/ERS acceptability and repeatability standards for spirometry met. Start of test and EOFE criteria met. Current ATS/ERS acceptability and repeatability standards for DLCO met with 2 acceptable maneuvers.//NF IMPRESSION: Spirometry reveals a reduced FEV1/FVC with normal FEV1 and FVC values. This could reflect a normal presentation or could indicate mild obstruction. Clinical correlation recommended. The diffusion capacity (uncorrected for hemoglobin) is normal. Electronically Signed On 12-23-2024 10:38:39 EDT by Jose Aranda MD ID: [id number] Name: EMMETT QIU Race: White Ht: 60.04 in Wt: 119.27 lbs Age: 49 Gender: Female : 1975 Dx: Shortness of breath Smoking Hx: Smoker Doctor: DEBRA DEL VALLE Test Date: 12/18/2024 Site: Tech: Jamey Monge PRE-BRONCH POST-BRONCH Melissa LLN Pred ULN %Pred ZScore Melissa %Pred %Chg ZScore SPIROMETRY FVC 3.44 2.05 2.75 3.46 125 1.60 FEV1 2.34 1.68 2.28 2.84 102 0.18 FEV1/FVC 0.68 0.71 0.82 0.91 82 -1.98 FEFMax 4.74 4.66 6.17 7.67 76 -1.56 FEF50 2.08 1.67 3.28 4.88 63 -1.22 FIF50 4.52 FEF50/FIF50 0.46 90-100 FIVC 3.22 LOS87-63 1.35 1.43 2.53 3.92 53 -1.79 ExpiredTime 7.56 TimeToFEFMax 0.09 CALLUM 0.06 VolExtrap% 2 LUNG DIFFUSION DLCOunc 16.29 15.04 21.20 27.37 76 -1.31 DLCOStdPB 16.10 15.04 21.20 27.37 75 -1.36 VA 4.66 3.31 4.41 5.51 105 0.37 Kco 3.50 3.53 4.51 5.61 77 -1.70 Comments: Current ATS/ERS acceptability and repeatability standards for spirometry met. Start of test and EOFE criteria met. Current ATS/ERS acceptability and repeatability standards for DLCO met with 2 acceptable maneuvers.//NF us Debra Del Valle MD SCHEDULED PROCEDURES Final Result [facility] [address] [facility] [place] [id number] * (ABNORMAL) COMPREHENSIVE METABOLIC PANEL (10/09/2024 10:34 AM EST) Pathologist [facility] Protein, Total 7.2 6.3 - 8.0 g/dL 10/09/2024 7:13 PM EST [facility] Albumin 4.6 3.9 - 4.9 g/dL 10/09/2024 7:13 PM EST [facility] Calcium, Total 9.4 8.5 - 10.2 mg/dL 10/09/2024 7:13 PM EST [facility] Bilirubin, Total 0.4 0.2 - 1.3 mg/dL 10/09/2024 7:13 PM EST [facility] Alkaline Phosphatase 71 34 - 123 U/L 10/09/2024 7:13 PM EST [facility] AST 24 13 - 35 U/L 10/09/2024 7:13 PM EST [facility] ALT 14 7 - 38 U/L 10/09/2024 7:13 PM EST [facility] Glucose 68(L) 74 - 99 mg/dL 10/09/2024 7:13 PM EST [facility] Comment: The [place] [employer] (ADA) provides guidance for cutoff values for fasting glucose and random glucose. The ADA defines fasting as no caloric intake for at least 8 hours. Fasting plasma glucose results between 100 to 125 mg/dL indicate increased risk for diabetes (prediabetes). Fasting plasma glucose results greater than or equal to 126 mg/dL meet the criteria for diagnosis of diabetes. In the absence of unequivocal hyperglycemia, results should be confirmed by repeat testing. In a patient with classic symptoms of hyperglycemia or hyperglycemic crisis, random plasma glucose results greater than or equal to 200 mg/dL meet the criteria for diagnosis of diabetes. Reference: Standards of Medical Care in Diabetes 2016, [place] [employer]. Diabetes Care. 2016.39(Suppl 1). BUN 16 7 - 21 mg/dL 10/09/2024 7:13 PM [facility] Creatinine 0.73 0.58 - 0.96 mg/dL 10/09/2024 7:13 PM [facility] Sodium 139 136 - 144 mmol/L 10/09/2024 7:13 PM [facility] Potassium 4.4 3.7 - 5.1 mmol/L 10/09/2024 7:13 PM [facility] Chloride 106 98 - 107 mmol/L 10/09/2024 7:13 PM [facility] CO2 22 22 - 30 mmol/L 10/09/2024 7:13 PM [facility] Anion Gap 11 8 - 15 mmol/L 10/09/2024 7:13 PM [facility] Estimated Glomerular Filtration Rate 101 >=60 mL/min/1.7 3m 10/09/2024 7:13 PM [facility] Comment:Estimated Glomerular Filtration Rate (eGFR) is calculated using the 2020 CKD-EPI creatinine equation. This equation utilizes serum creatinine, sex, and age as parameters. The creatinine assay has traceable calibration to isotope dilution- mass spectrometry. Refer to KDIGO guidelines for clinical interpretation. In patients with unstable renal function, e.g. those with acute kidney injury, the eGFR may not accurately reflect actual GFR. Blood BLOOD SPECIMEN / Unknown Venipuncture / Unknown 10/09/2024 10:34 AM EST 10/09/2024 10:36 AM EST us Debra Del Valle MD LABORATORY Final Resul t [facility] [address] [facility] [address] [place] [address], [place] * COLONOSCOPY (THERAPEUTIC) (02/01/2023 10:30 AM EDT) Anatomical Region Laterality Modality Other 02/01/2023 10:3 0 AM EDT Narrative 02/01/2023 11:03 AM EDT A31 Gastrointestinal Endoscopy Patient Name: Emmett Qiu Procedure Date: 02/01/2023 10:30 AM Date of : 1975 Admit Type: Outpatient Age: 47 Room: [address] Gender: Female Note Status: Finalized Attending MD: Lloyd Mcadams MD Procedure: Colonoscopy Indications: Screening for colorectal malignant neoplasm Providers: Lloyd Mcadams MD, Rupal Manley MD (Fellow) Patient Profile: This is a 47 year old female. Refer to note in patient chart for documentation of history and physical. Last Colonoscopy: several years ago. Referring Physician: Lloyd Mcadams MD (Referring MD), Debra Del Valle MD Medicines: Fentanyl 100 micrograms IV, Midazolam 4 mg IV Complications: No immediate complications. Estimated blood loss: None. Requesting Provider: Procedure: Pre-Anesthesia Assessment: - Prior to the procedure, a History and Physical was performed, and patient medications and allergies were reviewed. The patient's tolerance of previous anesthesia was also reviewed. The risks and benefits of the procedure and the sedation options and risks were discussed with the patient. All questions were answered, and informed consent was obtained. Prior Anticoagulants: The patient has taken no anticoagulant or antiplatelet agents. ASA Grade Assessment: II - A patient with mild systemic disease. After reviewing the risks and benefits, the patient was deemed in satisfactory condition to undergo the procedure. - Prior to the procedure, a History and Physical was performed, and patient medications, allergies and sensitivities were reviewed. The patient's tolerance of previous anesthesia was reviewed. - The risks and benefits of the procedure and the sedation options and risks were discussed with the patient. All questions were answered and informed consent was obtained. - Patient identification and proposed procedure were verified prior to the procedure by the physician and the nurse. The procedure was verified in the pre-procedure area in the procedure room. - Pre-procedure physical examination revealed no contraindications to sedation. - ASA Grade Assessment: II - A patient with mild systemic disease. - After reviewing the risks and benefits, the patient was deemed in satisfactory condition to undergo the procedure. - The anesthesia plan was to use moderate sedation/analgesia (conscious sedation). - Immediately prior to administration of medications, the patient was re-assessed for adequacy to receive sedatives. - Sedation was administered by an endoscopy nurse. The sedation level attained was moderate. - The heart rate, respiratory rate, oxygen saturations, blood pressure, adequacy of pulmonary ventilation, and response to care were monitored throughout the procedure. - The physical status of the patient was re-assessed after the procedure. After I obtained informed consent, the scope was passed under direct vision. Throughout the procedure, the patient's blood pressure, pulse, and oxygen saturations were monitored continuously. The Colonoscope was introduced through the anus and advanced to 5 cm into the ileum. The colonoscopy was performed without difficulty. The patient tolerated the procedure well. The quality of the bowel preparation was excellent. The terminal ileum, ileocecal valve, appendiceal orifice, and rectum were photographed. Moderate Sedation: Moderate (conscious) sedation was administered by the endoscopy nurse and supervised by the endoscopist. The following parameters were monitored: oxygen saturation, heart rate, blood pressure, and response to care. Total physician intraservice time was 15 minutes. The administration of moderate sedation was initiated at 10:40 AM. Findings: The perianal and digital rectal examinations were normal. The colon (entire examined portion) appeared normal. The terminal ileum appeared normal. No additional abnormalities were found on retroflexion. Impression: - The entire examined colon is normal. - The examined portion of the ileum was normal. - No specimens collected. Estimated Blood Loss: Estimated blood loss: none. Recommendation: - Patient has a contact number available for emergencies. The signs and symptoms of potential delayed complications were discussed with the patient. Return to normal activities tomorrow. Written discharge instructions were provided to the patient. - Resume previous diet. - Continue present medications. - Repeat colonoscopy in 10 years for screening purposes. - Return to referring physician as previously scheduled. - Discharge patient to home (ambulatory). Procedure Code(s): --- Professional --- 82396, Colonoscopy, flexible; diagnostic, including collection of specimen(s) by brushing or washing, when performed (separate procedure) G0500, Moderate sedation services provided by the same physician or other qualified health health care analyst performing a gastrointestinal endoscopic service that sedation supports, requiring the presence of an independent trained observer to assist in the monitoring of the patient's level of consciousness and physiological status; initial 15 minutes of intra-service time; patient age 5 years or older (additional time may be reported with 92620, as appropriate) CPT copyright 2020 [place] [employer]. All rights reserved. The codes documented in this report are preliminary and upon shade hanger review may be revised to meet current compliance requirements. Attending Participation: I was present and participated during the entire procedure, including non-walter portions. I was present and participated during the entire procedure, including non-walter portions, and during the administration and monitoring of Moderate Sedation. Scope In: 10:43:43 AM Scope Out: 10:55:37 AM MD Lloyd Hollins MD 02/01/2023 11:00:17 AM This report has been signed electronically by Lloyd Mcadams MD Number of Addenda: 0 Note Initiated On: 02/01/2023 10:30 AM Lloyd Mcadams MD DIGESTIVE DISEASE Final Result from Last 3 Months or Most Recently Relevant to Health Maintenance Insurance [facility] PPO Care Teams Residential Carpet Installer Relationship Specialty Start Date End Date Beau José DO [address] [place] [address] PCP - General Family Medicine 9/8/20
--- OUTSIDE RECORDS SUMMARY | 2025-03-03 09:09 | XMS_ITS | Encounter Summary ---
Author Organization [facility] Address [address] [place] [address] Care Team Providers Care Diesel Locomotive Crane Operator Name Role Phone Beau José MD Primary Care Provider [phone] Encounter Details Date Type Department Care Team (Late Contact Info) Description 02/14/2023 Abstract [facility] [address] [facility] [address] [place] [id number] Jr. Ry Wynne DO [address] [facility] [address] [place] [address] Social History Tobacco Use Types Packs/Day Years Used Date Smoking Tobacco: Every Day Cigarettes Tobacco Cessation:Ready to Q uit: Not Asked; Counseling Given: Not Answered Comments:Smokes 5 or less cigarettes per day. Alcohol Use Standard Drinks/Week Comments Not Currently 0 (1 standard drink = 0.6 oz pure alcohol) Hasn't drank alcohol in the past 12 months Comments Unknown Sex and Gender Information Value Date Recorded Sex Assigned at Not on file Legal Sex Female 7:33 PM EDT Gender Identity Not on file Sexual Orientation Not on file documented as of this encounter Plan of Treatment Upcoming Encounters Date Type Department Care Team (Late Contact Info) Description 09/12/2025 9:00 AM EST Office Visit [facility] [address] [facility] [place] [address] Greg Norris, DO [address] [facility] [address] [place] [address] documented as of this encounter Visit Diagnoses Not on filedocumented in this encounter Care Teams Diesel Locomotive Crane Operator Relationship Specialty Start Date End Date Beau José MD PCP - General Family Medicine 02/14/23 documented as of this encounter
--- OUTSIDE RECORDS SUMMARY | 2025-03-03 09:09 | XMS_ITS | Encounter Summary ---
Author Organization [facility] Address [address] [place] [address] Care Team Providers Care Special Forces Senior Sergeant Name Role Phone Beau José DO Primary Care Provider Source Comments In the event this information is protected by the Federal Confidentiality of Alcohol and Drug AbusePatient Records regulations: The Federal rules restrict any use of the information to criminally investigate or prosecute any alcohol or drug abuse patient.[facility] Encounter Details Date Type Department Care Team (Late Contact Info) Description 11/04/2019 Get Medical Advice Gastroenterology [address] [address] Trung Neri MD [address] [place] [id number] RE: Medication Question (Not Renewal) Social History Tobacco Use Types Packs/Day Years Used Date Smoking Tobacco: Former Cigarettes Q uit: 10/14/2019 Comments Unknown Sex and Gender Information Value Date Recorded Sex Assigned at Not on file Legal Sex Female 12:02 PM EDT Gender Identity Not on file Sexual Orientation Not on file documented as of this encounter Plan of Treatment Upcoming Encounters Date Type Department Care Team (Late Contact Info) Description 03/05/2025 9:00 AM EDT Office Visit Pulmonary Medicine 9[address] [place] [address] Pulmonary Hypertension: Please make arrangements for the following patient to have a RHC with Dr. Garner on 03/05 at 9am. 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] 03/31/2025 1:30 PM EDT Procedure Cardiology [address] [address] Scleroderma, limited (HCC) [M34.9] 03/31/2025 2:00 PM EDT Office Visit Pulmonary Medicine [address] [address] Marlin Morris MD 6770 [facility] [address] [place], [place] [phone] EST PH pt 5 wk f/u w/Arturo 04/14/2025 10:00 AM EDT Office Visit Rheumatology [address] [address] Debra Ordonez MD [address] [place], [place] [phone] 6month follow up per walk up documented as of this encounter Visit Diagnoses Not on filedocumented in this encounter Care Teams Special Forces Senior Sergeant Relationship Specialty Start Date End Date Beau José DO [address] [place] [address] PCP - General Family Medicine 06/02/20 documented as of this encounter
--- OUTSIDE RECORDS SUMMARY | 2025-03-03 09:09 | XMS_ITS | Encounter Summary ---
Author Organization [facility] Address [address] [place] [address] Care Team Providers Care Dairy Technician Name Role Phone Beau José DO Primary Care Provider Source Comments In the event this information is protected by the Federal Confidentiality of Alcohol and Drug AbusePatient Records regulations: The Federal rules restrict any use of the information to criminally investigate or prosecute any alcohol or drug abuse patient.[facility] Encounter Details Date Type Department Care Team (Late st Contact Info) Description 10/14/2021 Patient Msg [facility] [address] [place] [address] Provider, Ccf RESCHEDULED APPOINTMENT Social History Tobacco Use Types Packs/Day Years [...] 03/2020 PHQ-2 Answer Date Recorded PHQ-2 score 2 05/31/2020 Area Deprivation Index Answer Date Isaac rded National Score (1-100), lower number is lower ri sk Not on file 09/01/2020 State Score (1-10), lower number is lower risk N ot on file 09/01/2020 Data from: https://www.neighborhoodatlas.medicine.[facility].edu/. Last address used for calculation Not [...] AM EDT Office Visit Pulmonary Medicine 9[address] [place] [address] Pulmonary Hypertension: Please make arrangements for the following patient to have a RHC with Dr. Garner on 03/05 at 9am. 03/19/2025 2:00 PM EDT Office Visit Neurology [address]00 [place] [address] If I have a problem with sleeping 03/20/2025 8:15 AM EDT Office Visit [facility]ARD [facility] 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] 03/31/2025 2:00 PM EDT Office Visit Pulmonary Medicine [address] [address] Marlin Morris MD [address] [place], [place] [phone] EST PH pt 5 wk f/u w/Arturo 04/14/2025 10:00 AM EDT Office Visit Rheumatology [address] [address] Debra Ordonez MD [address] [place], [place] [phone] 6month follow up per walk up documented as of this encounter Visit Diagnoses Not on filedocumented in this encounter Care Teams Dairy Technician Relationship Specialty Start Date End Date Beau José DO [address] [place] [phone] PCP - General Family Medicine 06/02/20 documented as of this encounter
--- OUTSIDE RECORDS SUMMARY | 2025-03-03 09:09 | XMS_ITS | Encounter Summary ---
Author Organization [facility] Address [address] [place] [address] Care Team Providers Care Orange Picking Supervisor Name Role Phone Beau José DO Primary Care Provider Source Comments In the event this information is protected by the Federal Confidentiality of Alcohol and Drug AbusePatient Records regulations: The Federal rules restrict any use of the information to criminally investigate or prosecute any alcohol or drug abuse patient.[facility] Encounter Details Date Type Department Care Team (Late st Contact Info) Description 08/10/2021 Patient [facility] HB-3 [address] [place] [address] Provider, Ccf Welcome to [facility] [place] s Turbocoating messaging. Social History Tobacco Use Types Packs/Day Years [...] ot on file 09/01/2020 Data from: https://www.neighborhoodatlas.medicine.[facility].edu/. Last address used for calculation Not [...] AM EDT Office Visit Pulmonary Medicine 9[address] [place] [address] Pulmonary Hypertension: Please make arrangements for the following patient to have a RHC with Dr. Garner on 03/05 at 9am. 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.9] 03/31/2025 2:00 PM EDT Office Visit Pulmonary Medicine 2049 [address], [place] [address] Marlin Morris MD [address] [phone] EST PH pt 5 wk f/u w/Arturo 04/14/2025 10:00 AM EDT Office Visit Rheumatology [address] [address] Debra Ordonez MD [address] [place] [address] 6month follow up per walk up documented as of this encounter Visit Diagnoses Not on filedocumented in this encounter Care Teams Orange Picking Supervisor Relationship Specialty Start Date End Date Beau José DO [address] [place] [phone] PCP - General Family Medicine 06/02/20 documented as of this encounter
--- OUTSIDE RECORDS SUMMARY | 2025-03-03 09:09 | XMS_ITS | Encounter Summary ---
Author Organization [facility] Address [address] [place] [address] Care Team Providers Care Bmx Rider Name Role Phone Beau José DO Primary Care Provider Source Comments In the event this information is protected by the Federal Confidentiality of Alcohol and Drug AbusePatient Records regulations: The Federal rules restrict any use of the information to criminally investigate or prosecute any alcohol or drug abuse patient.[facility] Encounter Details Date Type Department Care Team (Late st Contact Info) Description 07/07/2022 Patient Msg Cardiology [address] [place] [phone] Provider, Ccf Appointment Cancellation Request Social History [...] N ot on file 09/01/2020 Data from: https://www.neighborhoodatlas.medicine.[facility].edu/. Last address used for calculation Not [...] AM EDT Office Visit Pulmonary Medicine [address] [place] [address] Pulmonary Hypertension: Please make arrangements for the following patient to have a RHC with Dr. Garner on 03/05 at 9am. 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] 03/31/2025 1:30 PM EDT Procedure Cardiology [address] [address] Scleroderma, limited (HCC) [M34.9] 03/31/2025 2:00 PM EDT Office Visit Pulmonary Medicine [address] [address] Marlin Morris MD [address] [phone] EST PH pt 5 wk f/u w/Arturo 04/14/2025 10:00 AM EDT Office Visit Rheumatology [address] [address] Debra Ordonez MD [address] [place], [place] [phone] 6month follow up per walk up documented as of this encounter Visit Diagnoses Not on filedocumented in this encounter Care Teams Bmx Rider Relationship Specialty Start Date End Date Beau José DO [address] [place] [phone] PCP - General Family Medicine 06/02/20 documented as of this encounter
--- OUTSIDE RECORDS SUMMARY | 2025-03-03 09:09 | XMS_ITS | Clinical Summary ---
Author Organization [facility] Address [address] [place] [address] Phone Care Team Providers Care Supplier Specialist Name Role Phone Unavailable Primary Care Provider Unavailabl e Social History Tobacco Use Types Packs/Day Years Used Date Smoking Tobacco: Never Assessed Comments Unknown Sex and Gender Information Value Date Recorded Sex Assigned at Not on file Legal Sex Female 12:00 AM EST Gender Identity Not on file Sexual Orientation Not on file Plan of Treatment Not on file
--- OUTSIDE RECORDS SUMMARY | 2025-03-03 09:09 | XMS_ITS | Encounter Summary ---
Author Organization [facility] Address [facility] [place] [address] Care Team Providers Care Airport Location Manager Name Role Phone Beau José DO Primary Care Provider Source Comments In the event this information is protected by the Federal Confidentiality of Alcohol and Drug AbusePatient Records regulations: The Federal rules restrict any use of the information to criminally investigate or prosecute any alcohol or drug abuse patient.[facility] Encounter Details Date Type Department Care Team (Late st Contact Info) Description 02/01/2023 Patient Msg [facility] [address] [place] [address] Provider, Ccf Appointment Rescheduled Social History Tobacco [...] is lower risk 4 02/01/2023 Data from: https://www.neighborhoodatlas.medicine.[facility].edu/. Last address used for calculation 16[address] [...] AM EDT Office Visit Pulmonary Medicine 9[address] [place] [address] Pulmonary Hypertension: Please make arrangements for the following patient to have a RHC with Dr. Garner on 03/05 at 9am. 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] 03/31/2025 1:30 PM EDT Procedure Cardiology [address] [address] Scleroderma, limited (HCC) [M34.9] 03/31/2025 2:00 PM EDT Office Visit Pulmonary Medicine [address] [address] Marlin Morris MD [address] [place], [place] [phone] EST PH pt 5 wk f/u w/Arturo 04/14/2025 10:00 AM EDT Office Visit Rheumatology [address] [address] Debra Ordonez MD [address] [place], [place] [phone] 6month follow up per walk up documented as of this encounter Visit Diagnoses Not on filedocumented in this encounter Care Teams Airport Location Manager Relationship Specialty Start Date End Date Beau José DO [address] [place] [phone] PCP - General Family Medicine 06/02/20 documented as of this encounter
--- OUTSIDE RECORDS SUMMARY | 2025-03-03 09:09 | XMS_ITS | Encounter Summary ---
Author Organization [facility] Address [address] [place] [address] Care Team Providers Care Life Insurance Actuary Name Role Phone Beau José DO Primary Care Provider Source Comments In the event this information is protected by the Federal Confidentiality of Alcohol and Drug AbusePatient Records regulations: The Federal rules restrict any use of the information to criminally investigate or prosecute any alcohol or drug abuse patient.[facility] Encounter Details Date Type Department Care Team (Late st Contact Info) Description 08/04/2022 Patient Msg Rheumatology [address] [place] [phone] Magdalena Estrella, [facility] lab results - high vitamin D Social History Tobacco Use Types Packs/Day Years [...] N ot on file 09/01/2020 Data from: https://www.neighborhoodatlas.medicine.[facility].edu/. Last address used for calculation Not on file 09/01/2020 Comments No Sex and Gender Information Value Date Recorded Sex Assigned at Not on file Legal Sex Female 12:02 PM EDT Gender Identity Not on file Sexual Orientation Not on file COVID-19 Exposure Response Date Recorded In the last 10 days, have yo u been in contact with someone who was confirmed or suspected to have Coronavirus/COVID-19? No / Unsure 08/02/2022 12:17 PM EST documented as of this encounter Plan of Treatment Upcoming Encounters Date Type Department Care Team (Late st Contact Info) Description 03/05/2025 9:00 AM EDT Office Visit Pulmonary Medicine [address] [place] [phone] Pulmonary Hypertension: Please make arrangements for the following patient to have a RHC with Dr. Garner on 03/05 at 9am. 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] 03/31/2025 1:30 PM EDT Procedure Cardiology [address] [address] Scleroderma, limited (HCC) [M34.9] 03/31/2025 2:00 PM EDT Office Visit Pulmonary Medicine [address] [address] Marlin Morris MD [address] [place] [address] EST PH pt 5 wk f/u w/Arturo 04/14/2025 10:00 AM EDT Office Visit Rheumatology [address] [address] Debra Ordonez MD [address] [place] [address] 6month follow up per walk up documented as of this encounter Visit Diagnoses Not on filedocumented in this encounter Care Teams Life Insurance Actuary Relationship Specialty Start Date End Date Beau José DO [address] [facility] [place] [address] PCP - General Family Medicine 06/02/20 documented as of this encounter
--- OUTSIDE RECORDS SUMMARY | 2025-03-03 09:09 | XMS_ITS | Encounter Summary ---
Author Organization [facility] Address [address] [place] [address] Care Team Providers Care Tax Appraiser Name Role Phone Beau José DO Primary Care Provider Source Comments In the event this information is protected by the Federal Confidentiality of Alcohol and Drug AbusePatient Records regulations: The Federal rules restrict any use of the information to criminally investigate or prosecute any alcohol or drug abuse patient.[facility] Encounter Details Date Type Department Care Team (Late st Contact Info) Description 08/10/2021 Patient [facility] HB-3 [address] [place] [address] Provider, Ccf New compounded prescription at [facility] Social History Tobacco Use Types Packs/Day Years [...] N ot on file 09/01/2020 Data from: https://www.neighborhoodatlas.medicine.[facility].edu/. Last address used for calculation Not on [...] AM EDT Office Visit Pulmonary Medicine [address] [place] [address] Pulmonary Hypertension: Please make arrangements for the following patient to have a RHC with Dr. Garner on 03/05 at 9am. 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] 03/31/2025 1:30 PM EDT Procedure Cardiology [address] [address] Scleroderma, limited (HCC) [M34.9] 03/31/2025 2:00 PM EDT Office Visit Pulmonary Medicine [address] [place] [address] Marlin Morris MD [address] [phone] EST PH pt 5 wk f/u w/Arturo 04/14/2025 10:00 AM EDT Office Visit Rheumatology [address] [address] Debra Ordonez MD [address] [place] [address] 6month follow up per walk up documented as of this encounter Visit Diagnoses Not on filedocumented in this encounter Care Teams Tax Appraiser Relationship Specialty Start Date End Date Beau José DO [address] [place] [address] PCP - General Family Medicine 06/02/20 documented as of this encounter
--- OUTSIDE RECORDS SUMMARY | 2025-03-03 09:09 | XMS_ITS | Encounter Summary ---
Author Organization [facility] Address [address] [place] [address] Care Team Providers Care Ladies Underwear Operator Name Role Phone Beau José MD Primary Care Provider [phone] Encounter Details Date Type Department Care Team (Late Contact Info) Description 01/15/2024 Clinisync Result Encounter [facility] External Department Unsolicited Alberto Aguayo, DO [address] [place] [address] Social History Tobacco Use Types Packs/Day Years [...] Upcoming Encounters Date Type Department Care Team ([facility] Contact Info) Description 09/12/2025 9:00 AM EST Office Visit [facility] [address] [facility] [address] Alberto Aguayo, DO [address] [place] [address] documented as of this encounter Procedures Procedure Name Priority Date/Time Associated Diagnosis Comments MM TOMOSYNTHESIS SCREENING BI 01/15/2024 11:17 AM EDT documented in this encounter Results * MM TOMOSYNTHESIS SCREENING BI (01/15/2024 11:17 AM EDT) Anatomical Region Laterality Modality Other 01/15/2024 11:1 7 AM EDT Narrative 01/15/2024 11:18 [place] [address] Mammography Report Signed Patient: EMMETT QIU MR#: [id number] : 1975 Acct:[id number] Age/Sex: 48 / F ADM Date: 01/15/24 Loc: MAMMO Attending Dr: ALBERTO AGUAYO Ordering Physician: ALBERTO AGUAYO Results: Date of Service: 01/15/24 Follow Up: Procedure(s): MM tomosynthesis screening BI Accession Number(s): [id number] cc: BEAU JOSÉ RICHARD Patient Name: EMMETT QIU MR#: [id number] : 1975 Exam Date: 01/15/2024 Ordering Doctor: DR ALBERTO AGUAYO RADIOLOGY REPORT PROCEDURE: MM TOMOSYNTHESIS SCREENING BI COMPARISON: MG MAMM SCREEN 3D RUTHIE CAD, 12/10/2021. MG MAMM SCREEN 3D RUTHIE CAD, 12/15/2022. INDICATIONS: Screening Calculator Name NCI Breast Cancer Risk Assessment Tool 5 Year Breast Cancer Risk 1.30% Lifetime Breast Cancer Risk 12.50% Personal Breast Cancer No Personal Ovarian Cancer No Treatments None Family Cancers Father with prostate cancer at age 70. LOCATION: [facility] BREAST COMPOSITION: The breasts are heterogeneously dense,which may obscure small masses. FINDINGS: DIAGNOSTIC CATEGORY 1--NEGATIVE. NO CHANGE FROM COMPARISON ASSESSMENT. RIGHT BREAST: No significant suspicious finding. LEFT BREAST: No significant suspicious finding. RECOMMENDATIONS: ROUTINE MAMMOGRAM AND CLINICAL EVALUATION IN 12 MONTHS. PLEASE NOTE: A NORMAL MAMMOGRAM DOES NOT EXCLUDE THE POSSIBILITY OF BREAST CANCER. A CLINICALLY SUSPICIOUS PALPABLE LUMP SHOULD BE BIOPSIED. Dictated by: Alessandro Whipple MD on 01/15/2024 at 11:15 Approved by: Alessandro Whipple MD on 01/15/2024 at 11:16 Dictated By: Alessandro Whipple M.D. Signed By: 01/15/24 1118 DD/ 1117 TD/TT: Metallurgical Engineering Technician: Procedure Note Radiology, Radiologist, MD - 01/15/2024 [place] [address] Mammography Report Signed Patient: EMMETT QIU MMR#: [id number] : 1975Acct:[id number] Age/Sex: 48 / FADM Date: 01/15/24 Loc: MAMMO Attending Dr: ALBERTO AGUAYO Ordering Physician: ALBERTO AGUAYOResults: Date of Service: 01/15/24Follow Up: Procedure(s): MM tomosynthesis screening BI Accession Number(s): [id number] cc: BEAU JOSÉ RICHARD Patient Name: EMMETT QIU MR#: [id number] : 1975 Exam Date: 01/15/2024 Ordering Doctor: DR ALBERTO AGUAYO RADIOLOGY REPORT PROCEDURE: MM TOMOSYNTHESIS SCREENING BI COMPARISON: MG MAMM SCREEN 3D RUTHIE CAD, 12/10/2021. MG MAMM SCREEN 3DBIL CAD, 12/15/2022. INDICATIONS: Screening Calculator Name NCI Breast Cancer Risk Assessment Tool 5 Year Breast Cancer Risk 1.30% Lifetime Breast Cancer Risk 12.50% Personal Breast Cancer No Personal Ovarian Cancer No Treatments None Family Cancers Father with prostate cancer at age 70. LOCATION: [facility] BREAST COMPOSITION: The breasts are heterogeneously dense,which may obscure small masses. FINDINGS: DIAGNOSTIC CATEGORY 1--NEGATIVE. NO CHANGE FROM COMPARISON ASSESSMENT. RIGHT BREAST: No significant suspicious finding. LEFT BREAST: No significant suspicious finding. RECOMMENDATIONS: ROUTINE MAMMOGRAM AND CLINICAL EVALUATION IN 12 MONTHS. PLEASE NOTE: A NORMAL MAMMOGRAM DOES NOT EXCLUDE THE POSSIBILITY OFBREAST CANCER. A CLINICALLY SUSPICIOUS PALPABLE LUMP SHOULD BE BIOPSIED. Dictated by: Alessandro Whipple MD on 01/15/2024 at 11:15 Approved by: Alessandro Whipple MD on 01/15/2024 at 11:16 Dictated By: Alessandro Whipple M.D. Signed By:01/15/24 1118 DD/ 1117 TD/TT: Metallurgical Engineering Technician: us Alberto Aguayo DO [facility] Final Resul t documented in this encounter Visit Diagnoses Not on filedocumented in this encounter Care Teams Ladies Underwear Operator Relationship Specialty Start Date End Date Beau José MD PCP - General Family Medicine 02/14/23 documented as of this encounter
--- OUTSIDE RECORDS SUMMARY | 2025-03-03 09:09 | XMS_ITS | Encounter Summary ---
Author Organization [facility] Address [facility] [place] [address] Care Team Providers Care Java Flex Developer Name Role Phone Beau José DO Primary Care Provider Source Comments In the event this information is protected by the Federal Confidentiality of Alcohol and Drug AbusePatient Records regulations: The Federal rules restrict any use of the information to criminally investigate or prosecute any alcohol or drug abuse patient.[facility] Encounter Details Date Type Department Care Team (Late st Contact Info) Description 10/08/2019 Abstract Gastroenterology [address] [address] Trung Neri MD [address] [place] [address] Social History Tobacco Use Types Packs/Day Years [...] AM EDT Office Visit Pulmonary Medicine 9300 [place] [address] Pulmonary Hypertension: Please make arrangements for the following patient to have a RHC with Dr. Garner on 03/05 at 9am. 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] 03/31/2025 1:30 PM EDT Procedure Cardiology [address] [address] Scleroderma, limited (HCC) [M34.9] 03/31/2025 2:00 PM EDT Office Visit Pulmonary Medicine [address] [place] [address] Marlin Morris MD 9970 [facility] [address] [place] [address] EST PH pt 5 wk f/u w/Arturo 04/14/2025 10:00 AM EDT Office Visit Rheumatology [address] [address] Debra Ordonez MD [address]00 [place] [address] 6month follow up per walk up documented as of this encounter Visit Diagnoses Not on filedocumented in this encounter Care Teams Java Flex Developer Relationship Specialty Start Date End Date Beau José DO [address] [facility] [place] [phone] PCP - General Family Medicine 06/02/20 documented as of this encounter
--- OUTSIDE RECORDS SUMMARY | 2025-03-03 09:09 | XMS_ITS | Encounter Summary ---
Author Organization [facility] Address [address] [place] [address] Care Team Providers Care Broadcast News Producer Name Role Phone Beau José DO Primary Care Provider Source Comments In the event this information is protected by the Federal Confidentiality of Alcohol and Drug AbusePatient Records regulations: The Federal rules restrict any use of the information to criminally investigate or prosecute any alcohol or drug abuse patient.[facility] Encounter Details Date Type Department Care Team (Late st Contact Info) Description 05/12/2023 Patient Msg [facility] [address] [place] [address] Provider, Ccf Compounded prescription at [facility] Social History Tobacco Use Types Packs/Day [...] is lower risk 4 02/01/2023 Data from: https://www.neighborhoodatlas.medicine.[facility]/. Last address used for calculation [address] [...] AM EDT Office Visit Pulmonary Medicine [address] [place] [phone] Pulmonary Hypertension: Please make arrangements for the following patient to have a RHC with Dr. Garner on 03/05 at 9am. 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] 03/31/2025 1:30 PM EDT Procedure Cardiology [address] [address] Scleroderma, limited (HCC) [M34.9] 03/31/2025 2:00 PM EDT Office Visit Pulmonary Medicine [address] [address] Marlin Morris MD [address] [address] EST PH pt 5 wk f/u w/Arturo 04/14/2025 10:00 AM EDT Office Visit Rheumatology [address] [address] Debra Ordonez MD [address] [place] [address] 6month follow up per walk up documented as of this encounter Visit Diagnoses Not on filedocumented in this encounter Care Teams Broadcast News Producer Relationship Specialty Start Date End Date Beau José DO [address] [place] [phone] PCP - General Family Medicine 06/02/20 documented as of this encounter
--- OUTSIDE RECORDS SUMMARY | 2025-03-03 09:10 | XMS_ITS | Encounter Summary ---
Author Organization [facility] Address [address] [place] [address] Care Team Providers Care Gas Adjuster Name Role Phone Beau José DO Primary Care Provider Source Comments In the event this information is protected by the Federal Confidentiality of Alcohol and Drug AbusePatient Records regulations: The Federal rules restrict any use of the information to criminally investigate or prosecute any alcohol or drug abuse patient.[facility] Encounter Details Date Type Department Care Team (Late st Contact Info) Description 12/16/2020 Patient Msg Gastroenterology [address] [place] [phone] Provider, Ccf Please read before your appointment with Dr. Mcadams Social History Tobacco Use Types Packs/Day Years [...] N ot on file 09/01/2020 Data from: https://www.neighborhoodatlas.medicine.[facility]/. Last address used for calculation Not on file 09/01/2020 Comments No Sex and Gender Information Value Date Recorded Sex Assigned at Not on file Legal Sex Female 12:02 PM EDT Gender Identity Not on file Sexual Orientation Not on file COVID-19 Exposure Response Date Recorded In the last month, have you been in contact with someone who was confirmed or suspected to have Coronavirus / COVID-19? No / Unsure 12/03/2020 9:32 AM EST documented as of this encounter Plan of Treatment Upcoming Encounters Date Type Department Care Team ([facility] st Contact Info) Description 03/05/2025 9:00 AM EDT Office Visit Pulmonary Medicine 9300 [place] [address] Pulmonary Hypertension: Please make arrangements for the following patient to have a RHC with Dr. Garner on 03/05 at 9am. 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] 03/31/2025 2:00 PM EDT Office Visit Pulmonary Medicine [address] [address] Marlin Morris MD [address] [place] [address] EST PH pt 5 wk f/u w/Arturo 04/14/2025 10:00 AM EDT Office Visit Rheumatology [address] [address] Debra Ordonez MD [address] [place] [address] 6month follow up per walk up documented as of this encounter Visit Diagnoses Not on filedocumented in this encounter Care Teams Gas Adjuster Relationship Specialty Start Date End Date Beau José DO [address] [facility] [place] [phone] PCP - General Family Medicine 06/02/20 documented as of this encounter
--- OUTSIDE RECORDS SUMMARY | 2025-03-03 09:10 | XMS_ITS | Encounter Summary ---
Author Organization [facility] Address [address] [place] [address] Care Team Providers Care Cutting And Creasing Press Operator Name Role Phone Beau José DO Primary Care Provider Source Comments In the event this information is protected by the Federal Confidentiality of Alcohol and Drug AbusePatient Records regulations: The Federal rules restrict any use of the information to criminally investigate or prosecute any alcohol or drug abuse patient.[facility] Encounter Details Date Type Department Care Team (Late st Contact Info) Description 01/07/2025 Get Medical Advice Rheumatology 2048 [place] [address] Debra Ordonez MD [address] [place], [place] [phone] Pulmonary appointment Social History Tobacco Use Types Packs/Day Years [...] is lower risk 4 02/01/2023 Data from: https://www.neighborhoodatlas.medicine.[facility]/. Last address used for calculation [address] [...] AM EDT Office Visit Pulmonary Medicine 9300 [place] [address] Pulmonary Hypertension: Please make arrangements for the following patient to have a RHC with Dr. Garner on 03/05 at 9am. 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] 03/31/2025 2:00 PM EDT Office Visit Pulmonary Medicine [address] [place] [address] Marlin Morris MD [address] [place] [address] EST PH pt 5 wk f/u w/Arturo 04/14/2025 10:00 AM EDT Office Visit Rheumatology [address] [address] Debra Ordonez MD [address] [place] [address] 6month follow up per walk up documented as of this encounter Visit Diagnoses Not on filedocumented in this encounter Care Teams Cutting And Creasing Press Operator Relationship Specialty Start Date End Date Beau José DO [address] [facility] [place] [address] PCP - General Family Medicine 06/02/20 documented as of this encounter
--- OUTSIDE RECORDS SUMMARY | 2025-03-03 09:10 | XMS_ITS | Encounter Summary ---
Author Organization [facility] Address [address] [place] [address] Care Team Providers Care Senior Software Developer Name Role Phone Beau José DO Primary Care Provider Source Comments In the event this information is protected by the Federal Confidentiality of Alcohol and Drug AbusePatient Records regulations: The Federal rules restrict any use of the information to criminally investigate or prosecute any alcohol or drug abuse patient.[facility] Encounter Details Date Type Department Care Team (Late st Contact Info) Description 01/29/2025 Results Follow-Up Provider Adult [address] [place] [address] Marlin Morris MD 2370 [facility] 323 [place] [address] Social History Tobacco Use Types Packs/Day Years [...] is lower risk 4 02/01/2023 Data from: https://www.neighborhoodatlas.medicine.[facility]/. Last address used for calculation [address] [...] AM EDT Office Visit Pulmonary Medicine 9300 [place] [address] Pulmonary Hypertension: Please make arrangements for the following patient to have a RHC with Dr. Garner on 03/05 at 9am. 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] 03/31/2025 2:00 PM EDT Office Visit Pulmonary Medicine [address] [address] Marlin Morris MD [address] [place] [address] EST PH pt 5 wk f/u w/Arturo 04/14/2025 10:00 AM EDT Office Visit Rheumatology [address] [address] Debra Ordonez MD [address]3 [place] [address] 6month follow up per walk up documented as of this encounter Visit Diagnoses Not on filedocumented in this encounter Care Teams Senior Software Developer Relationship Specialty Start Date End Date Beau José DO [address] [place] [address] PCP - General Family Medicine 06/02/20 documented as of this encounter
--- OUTSIDE RECORDS SUMMARY | 2025-03-03 09:10 | XMS_ITS | Encounter Summary ---
Author Organization [facility] Address [address] [place] [address] Care Team Providers Care Hot Mill Observer Name Role Phone Beau José DO Primary Care Provider Source Comments In the event this information is protected by the Federal Confidentiality of Alcohol and Drug AbusePatient Records regulations: The Federal rules restrict any use of the information to criminally investigate or prosecute any alcohol or drug abuse patient.[facility] Encounter Details Date Type Department Care Team (Latest Contact Info) Description 03/02/2025 Travel Social History Tobacco Use Types Packs/Day Years [...] is lower risk 4 02/01/2023 Data from: https://www.neighborhoodatlas.medicine.[facility]/. Last address used for calculation [...] AM EDT Office Visit Pulmonary Medicine 9300 [place] [address] Pulmonary Hypertension: Please make arrangements for the following patient to have a RHC with Dr. Garner on 03/05 at 9am. 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] 03/31/2025 2:00 PM EDT Office Visit Pulmonary Medicine [address] [address] Marlin Morris MD [address] [phone] EST PH pt 5 wk f/u w/Arturo 04/14/2025 10:00 AM EDT Office Visit Rheumatology [address] [address] Debra Ordonez MD [address] [place], [place] [phone] 6month follow up per walk up documented as of this encounter Visit Diagnoses Not on filedocumented in this encounter Care Teams Hot Mill Observer Relationship Specialty Start Date End Date Beau José DO [address] [place] [address] PCP - General Family Medicine 06/02/20 documented as of this encounter
--- OUTSIDE RECORDS SUMMARY | 2025-03-03 09:10 | XMS_ITS | Encounter Summary ---
Author Organization [facility] Address [address] [place] [address] Care Team Providers Care Inside Sales Trainer Name Role Phone Beau José DO Primary Care Provider Source Comments In the event this information is protected by the Federal Confidentiality of Alcohol and Drug AbusePatient Records regulations: The Federal rules restrict any use of the information to criminally investigate or prosecute any alcohol or drug abuse patient.[facility] Encounter Details Date Type Department Care Team (Late st Contact Info) Description 02/17/2021 Get Medical Advice Rheumatology 2048 [place] [address] Debra Ordonez MD [address] [place] [address] RE: Non-Urgent Medical Question Social History Tobacco Use Types Packs/Day Years [...] N ot on file 09/01/2020 Data from: https://www.neighborhoodatlas.medicine.[facility].edu/. Last address used for calculation Not on [...] EDT Office Visit Pulmonary Medicine 9300 [place] [address] Pulmonary Hypertension: Please make arrangements for the following patient to have a RHC with Dr. Garner on 03/05 at 9am. 03/19/2025 2:00 PM EDT Office Visit Neurology 9500 [place] [address] If I have a problem with sleeping 03/20/2025 8:15 AM EDT Office Visit [facility]ARD 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.9] 03/31/2025 2:00 PM EDT Office Visit Pulmonary Medicine [address] [address] Marlin Morris MD [address] [place] [address] EST PH pt 5 wk f/u w/Arturo 04/14/2025 10:00 AM EDT Office Visit Rheumatology [address] [address] Debra Ordonez MD 9118 [place], [place] [phone] 6month follow up per walk up documented as of this encounter Visit Diagnoses Not on filedocumented in this encounter Care Teams Inside Sales Trainer Relationship Specialty Start Date End Date Beau José DO [address] [place] [address] PCP - General Family Medicine 06/02/20 documented as of this encounter
--- OUTSIDE RECORDS SUMMARY | 2025-03-03 09:10 | XMS_ITS | Encounter Summary ---
Author Organization [facility] Address [address] [place] [address] Care Team Providers Care Utility Spray Operator Name Role Phone Beau José DO Primary Care Provider Source Comments In the event this information is protected by the Federal Confidentiality of Alcohol and Drug AbusePatient Records regulations: The Federal rules restrict any use of the information to criminally investigate or prosecute any alcohol or drug abuse patient.[facility] Encounter Details Date Type Department Care Team (Late st Contact Info) Description 12/31/2024 Get Medical Advice Rheumatology 2048 [place] [address] Debra Ordonez MD [address] [place], [place] [phone] Test results Social History Tobacco Use Types Packs/Day Years [...] is lower risk 4 02/01/2023 Data from: https://www.neighborhoodatlas.medicine.[facility]/. Last address used for calculation [address] [...] AM EDT Office Visit Pulmonary Medicine 9300 [place] [address] Pulmonary Hypertension: Please make arrangements for the following patient to have a RHC with Dr. Garner on 03/05 at 9am. 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.9] 03/31/2025 2:00 PM EDT Office Visit Pulmonary Medicine [address] [place] [address] Marlin Morris MD [address] [place] [address] EST PH pt 5 wk f/u w/Arturo 04/14/2025 10:00 AM EDT Office Visit Rheumatology [address] [address] Debra Ordonez MD [address] [place] [address] 6month follow up per walk up documented as of this encounter Visit Diagnoses Not on filedocumented in this encounter Care Teams Utility Spray Operator Relationship Specialty Start Date End Date Beau José DO [address] [facility] [place] [address] PCP - General Family Medicine 06/02/20 documented as of this encounter
--- OUTSIDE RECORDS SUMMARY | 2025-03-03 09:10 | XMS_ITS | Encounter Summary ---
Author Organization [facility] s tem Address [id number] [address] [place] [address] Care Team Providers Care Dining Room Tables Set Up Attendant Name Role Phone Beau José DO Primary Care Provider + [phone] Encounter Details Date Type Department Care Team (Late st Contact Info) Description 08/16/2023 Orders Only [facility] Internal [facility] - Family Medicine [address] [place] [phone] Beau José DO [address], [place] [address] Social History Tobacco Use Types Packs/Day Years Used Date Smoking Tobacco: Every Day Cigarettes 0.5 15 Smokeless Tobacco: Never Alcohol Use Standard Drinks/Week Comments Yes 0 (1 standard drink = 0.6 oz pur e alcohol) occasional [facility] Utilities Answer Date Recorded In the past 12 months has [employer], gas, oil, or water [employer] threatened to shut off services in your home? No 08/16/2023 Social Connection and Isolation Panel [NHANES] A nswer Date Recorded In a typical week, how many times do you talk on the phone with family, friends, or neighbors? Three times a week 08/11/2022 How often do you get togethe r with friends or relatives? Three times a week 08/11/2022 How often do you attend chur ch or gnosticist services? Never 08/11/2022 Do you belong to any clubs o r organizations such as anglican groups, unions, fraternal or athletic groups, or school groups? Yes 08/11/2022 How often do you attend meet ings of the clubs or organizations you belong to? Never 08/11/2022 Are you , , di vorced, , never , or living with a partner? 08/11/2022 AUDIT-C Answer Date Recorded Q1: How often do you have a drink containing alc ohol? 2-4 times a month 08/11/2022 Q2: How many drinks containi ng alcohol do you have on a typical day when you are drinking? 1 or 2 08/11/2022 Q3: How often do you have si x or more drinks on one occasion? Never 08/11/2022 Overall Financial Resource Strain (CARDIA) Answe r Date Recorded How hard is it for you to pa y for the very basics like food, housing, medical care, and heating? Not hard at all 08/11/2022 PHQ-2 Answer Date Recorded Total Score 15 08/16/2023 [facility] - Occupational Stress Questionnaire Answer Date Recorded Do you feel stress - tense, restless, nervous, or anxious, or unable to sleep at night because your mind is troubled all the time - these days? To some extent 08/11/2022 Exercise Vital Sign Answer Date Recorde d On average, how many days pe r week do you engage in moderate to strenuous exercise (like a brisk walk)? 5 days 08/11/2022 On average, how many minutes do you engage in exercise at this level? 60 min 08/11/2022 PRAPARE - Transportation Answer Date Re corded In the past 12 months, has l ack of transportation kept you from medical appointments or from getting medications? No 07/26 In the past 12 months, has l ack of transportation kept you from meetings, work, or from getting things needed for daily living? No 08/11/2022 Childcare Answer Date Recorded Do problems getting child ca re make it difficult for you to work or study? No 08/11/2022 Employment Answer Date Recorded Do you need help finding a l ocal career center and/or a training program? No 08/11/2022 Hunger Screening Answer Date Recorded Within the past 12 months we worried whether our food would run out before we got money to buy more. Never True 08/16/2023 Within the past 12 months th e food we bought just didn't last and we didn't have money to get more. Never True 08/16/2023 Purpose - Life Answer Date Recorded I have a purpose and direction in my life. Stron gly Agree 08/11/2022 Comments Unknown Sex and Gender Information Value Date Recorded Sex Assigned at Not on file Legal Sex Female 11:46 AM EDT Gender Identity Not on file Sexual Orientation Not on file documented as of this encounter Plan of Treatment Upcoming Encounters Date Type Department Care Team (Late st Contact Info) Description 08/27/2025 9:00 AM EST Office Visit [facility] - Family Medicine [address] [place] [address] Beau José DO [address], [place] [address] documented as of this encounter Procedures Procedure Name Priority Date/Time Associated Diagnosis Comments HM COLOGUARD Routine 11/09/2021 4:07 PM EST documented in this encounter Results * HM COLOGUARD (11/09/2021 4:07 PM EST) us Beau José DO HEALTH MAINTENANCE Final Res ult MANUALLY TRANSCRIBED RESULTS documented in this encounter Visit Diagnoses Not on filedocumented in this encounter Additional Health Concerns Assessment Noted Time PHQ-9 Depression Total Score: 15 023 8:37 AM EST documented as of this encounter Care Teams Dining Room Tables Set Up Attendant Relationship Specialty Start Date End Date Beau José DO [address], [place] [address] PCP - General Family Medicine 09/06/22 documented as of this encounter
--- OUTSIDE RECORDS SUMMARY | 2025-03-03 09:10 | XMS_ITS | Encounter Summary ---
Author Organization [facility] s tem Address [id number] [address] [place] [address] Care Team Providers Care China [employer] Silver[employer] Salesperson Name Role Phone Beau José DO Primary Care Provider + [phone] Reason for Visit * Reason Comments Med Refill Encounter Details Date Type Department Care Team (Late st Contact Info) Description 10/27/2022 Refill [facility] - Family Medicine [address] [place] [address] Beau José DO [address], [facility] [place] [address] Social History Tobacco Use Types Packs/Day Years Used Date Smoking Tobacco: Every Day Cigarettes 0.5 15 Smokeless Tobacco: Never Alcohol Use Standard Drinks/Week Comments Yes 0 (1 standard drink = 0.6 oz pur e alcohol) occasional Social Connection and Isolation Panel [NHANES] A nswer Date Recorded In a typical week, how many times do you talk on the phone with family, friends, or neighbors? Three times a week 08/11/2022 How often do you get togethe r with friends or relatives? Three times a week 08/11/2022 How often do you attend chur ch or restoration services? Never 08/11/2022 Do you belong to any clubs o r organizations such as gnosticist groups, unions, fraternal or athletic groups, or [...] 08/11/2022 PHQ-2 Answer Date Recorded Total Score 8 08/11/2022 [facility] Occupat ional [facility] - Occupational Stress Questionnaire Answer Date Recorded [...] Recorded Do you need help finding a [facility] career center and/or a training program? No 08/11/2022 Purpose - Life Answer Date Recorded I [...] Medicine - Family Medicine [address] [place] [address] Beau José DO [address], [facility] [place] [address] documented as of this encounter Visit Diagnoses Not on filedocumented in this encounter Additional Health Concerns Assessment Noted Time PHQ-9 Depression Total Score: 8 08/11/20 22 1:50 PM EST documented as of this encounter Care Teams China And Silverware Salesperson Relationship Specialty Start Date End Date Beau José DO [address] [facility] [place] [address] PCP - General Family Medicine 09/06/22 documented as of this encounter
--- OUTSIDE RECORDS SUMMARY | 2025-03-03 09:10 | XMS_ITS | Encounter Summary ---
Author Organization [facility] Address [address] [place] [address] Care Team Providers Care Prefabricated Houses Trimmer Name Role Phone Beau José DO Primary Care Provider Source Comments In the event this information is protected by the Federal Confidentiality of Alcohol and Drug AbusePatient Records regulations: The Federal rules restrict any use of the information to criminally investigate or prosecute any alcohol or drug abuse patient.[facility] Encounter Details Date Type Department Care Team (Late st Contact Info) Description 07/10/2020 Patient Msg Orth and Rheum [place] [address] [place] [address] Provider, Ccf Follow up Appointment Social History Tobacco Use Types Packs/Day Years [...] Answer Date Recorded PHQ-2 score 2 05/31/2020 Comments No Sex and Gender Information Value Date Recorded Sex Assigned at Not on file Legal Sex Female 12:02 PM EDT Gender Identity Not on file Sexual Orientation Not on file COVID-19 Exposure Response Date Recorded In the last month, have you been in contact with someone who was confirmed or suspected to have Coronavirus / COVID-19? No / Unsure 07/01/2020 8:12 AM EDT documented as of this encounter Plan of Treatment Upcoming Encounters Date Type Department Care Team (Late st Contact Info) Description 03/05/2025 9:00 AM EDT Office Visit Pulmonary Medicine [address] [place] [address] Pulmonary Hypertension: Please make arrangements for the following patient to have a RHC with Dr. Garner on 03/05 at 9am. 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.9] 03/31/2025 2:00 PM EDT Office Visit Pulmonary Medicine [address] [place] [address] Marlin Morris MD [address] [address] EST PH pt 5 wk f/u w/Arturo 04/14/2025 10:00 AM EDT Office Visit Rheumatology [address] [address] Debra Ordonez MD [address] [place], [place] [phone] 6month follow up per walk up documented as of this encounter Visit Diagnoses Not on filedocumented in this encounter Care Teams Prefabricated Houses Trimmer Relationship Specialty Start Date End Date Beau José DO [address] [place] [place] [address] PCP - General Family Medicine 06/02/20 documented as of this encounter
--- OUTSIDE RECORDS SUMMARY | 2025-03-03 09:10 | XMS_ITS | Encounter Summary ---
Author Organization [facility] tem Address [id number] [address] [place] [address] Care Team Providers Care Grain Combiner Name Role Phone Beau José DO Primary Care Provider + [phone] Encounter Details Date Type Department Care Team (Late st Contact Info) Description 08/16/2023 Telephone [facility] Internal Medicine - Family Medicine [address] [place] [phone] Beau José DO [address], [place] [address] Social History Tobacco Use Types Packs/Day Years Used Date Smoking Tobacco: Every Day Cigarettes 0.5 15 Smokeless Tobacco: Never Alcohol Use Standard Drinks/Week Comments Yes 0 (1 standard drink = 0.6 oz pur e alcohol) occasional [facility] Utilities Answer Date Recorded In the past 12 months has [employer], gas, oil, or water [employer] threatened to shut off services in your [...] often do you attend chur ch or presybeterian services? Never 08/11/2022 Do you belong to any clubs o r organizations such as religious groups, unions, fraternal or athletic groups, or [...] Answer Date Recorded Total Score 15 08/16/2023 [facility] - Occupational Stress Questionnaire Answer Date Recorded [...] encounter Miscellaneous Notes * Telephone Encounter - Yvonne Saeed - 08/16/2023 9:27 AM EST A[facility]ON ASKED IF YOU WOULD SEND IN CHANTIX documented in this encounter Plan of Treatment Upcoming Encounters Date Type Department Care Team (Late st Contact Info) Description 08/27/2025 9:00 AM EST Office Visit [facility] - Family Medicine [address] [place] [address] Beau José DO [address] [facility] [place] [address] documented as of this encounter Visit Diagnoses Not on filedocumented in this encounter Additional Health Concerns Assessment Noted Time PHQ-9 Depression Total Score: 15 023 8:37 AM EST documented as of this encounter Care Teams Grain Combiner Relationship Specialty Start Date End Date Beau José DO [address] [facility] [place] [address] PCP - General Family Medicine 09/06/22 documented as of this encounter
--- OUTSIDE RECORDS SUMMARY | 2025-03-03 09:10 | XMS_ITS | Encounter Summary ---
Author Organization [facility] Address [address] [place] [address] Care Team Providers Care Windows Application Developer Name Role Phone Beau José DO Primary Care Provider Source Comments In the event this information is protected by the Federal Confidentiality of Alcohol and Drug AbusePatient Records regulations: The Federal rules restrict any use of the information to criminally investigate or prosecute any alcohol or drug abuse patient.[facility] Reason for Visit * Reason Comments Appointment Confirmation Encounter Details Date Type Department Care Team (Late st Contact Info) Description 02/25/2025 Telephone Pulmonary Medicine [address] [phone] Alessandro Díaz MA Appointment Confirmation Social History Tobacco Use Types Packs/Day Years [...] is lower risk 4 02/01/2023 Data from: https://www.neighborhoodatlas.medicine.[facility].edu/. Last address used for calculation [address] 02/01/2023 Comments No Sex and Gender Information Value Date Recorded Sex Assigned at Not on file Legal Sex Female 12:02 PM EDT Gender Identity Not on file Sexual Orientation Not on file documented as of this encounter Miscellaneous Notes * Telephone Encounter - Alessandro Díaz MA - 02/25/2025 9:38 AM EDTSummary: Appoitnment Confirmation Called patient to confirm her RHC for 03/[address] Garner. Confirmed. Alessandro Díaz Clinical Cad Librarian [facility] Respiratory [place] documented in this encounter Plan of Treatment Upcoming Encounters Date Type Department Care Team (Late st Contact Info) Description 03/05/2025 9:00 AM EDT Office Visit Pulmonary Medicine [address] [place] [address] Pulmonary Hypertension: Please make arrangements for the following patient to have a RHC with Dr. Garner on 03/05 at 9am. 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] 03/31/2025 1:30 PM EDT Procedure Cardiology [address] [address] Scleroderma, limited (HCC) [M34.9] 03/31/2025 2:00 PM EDT Office Visit Pulmonary Medicine [address] [address] Marlin Morris MD [address] [place], [place] [phone] EST PH pt 5 wk f/u w/Arturo 04/14/2025 10:00 AM EDT Office Visit Rheumatology [address] [address] Debra Ordonez MD [address] [place], [place] [phone] 6month follow up per walk up documented as of this encounter Visit Diagnoses Not on filedocumented in this encounter Care Teams Windows Application Developer Relationship Specialty Start Date End Date Beau José DO [address] [facility] [place] [address] PCP - General Family Medicine 06/02/20 documented as of this encounter
--- OUTSIDE RECORDS SUMMARY | 2025-03-03 09:10 | XMS_ITS | Encounter Summary ---
Author Organization [facility] Address [address] [place] [address] Care Team Providers Care Campus Rep Name Role Phone eBau José DO Primary Care Provider Source Comments In the event this information is protected by the Federal Confidentiality of Alcohol and Drug AbusePatient Records regulations: The Federal rules restrict any use of the information to criminally investigate or prosecute any alcohol or drug abuse patient.[facility] Encounter Details Date Type Department Care Team (Late st Contact Info) Description 01/25/2023 Patient Msg Gastroenterology [address] [place] [phone] Nadine Epstein RN Appt reminder Social History Tobacco Use Types Packs/Day Years [...] N ot on file 10/16/2022 Data from: https://www.neighborhoodatlas.medicine.[facility]/. Last address used for calculation [address] [...] AM EDT Office Visit Pulmonary Medicine [address] [place] [address] Pulmonary Hypertension: Please make arrangements for the following patient to have a RHC with Dr. Garner on 03/05 at 9am. 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] 03/31/2025 1:30 PM EDT Procedure Cardiology [address] [address] Scleroderma, limited (HCC) [M34.9] 03/31/2025 2:00 PM EDT Office Visit Pulmonary Medicine [address], [place] [address] Marlin Morris MD [address] [id number] EST PH pt 5 wk f/u w/Arturo 04/14/2025 10:00 AM EDT Office Visit Rheumatology [address] [address] Debra Ordonez MD [address] [place] [address] 6month follow up per walk up documented as of this encounter Visit Diagnoses Not on filedocumented in this encounter Care Teams Campus Rep Relationship Specialty Start Date End Date Beau José DO [address] [place] [phone] PCP - General Family Medicine 06/02/20 documented as of this encounter
--- OUTSIDE RECORDS SUMMARY | 2025-03-03 09:10 | XMS_ITS | Encounter Summary ---
Author Organization [facility] Address [address] [place] [address] Care Team Providers Care Pediatric Neurologist Name Role Phone Beau José DO Primary Care Provider Source Comments In the event this information is protected by the Federal Confidentiality of Alcohol and Drug AbusePatient Records regulations: The Federal rules restrict any use of the information to criminally investigate or prosecute any alcohol or drug abuse patient.[facility] Encounter Details Date Type Department Care Team (Late st Contact Info) Description 07/01/2021 Patient Msg Urology [address] [place], [place] [phone] Provider, Ccf APPOINTMENT CANCELLED / RESCHEDULED Social History Tobacco Use Types Packs/Day Years [...] N ot on file 09/01/2020 Data from: https://www.neighborhoodatlas.medicine.[facility].edu/. Last address used for calculation Not [...] have Coronavirus / COVID-19? No / Unsure 06/02/2021 1:01 PM EDT documented as of this encounter Plan of Treatment Upcoming Encounters Date Type Department Care Team ([facility] st Contact Info) Description 03/05/2025 9:00 AM EDT Office Visit Pulmonary Medicine [address] [place] [address] Pulmonary Hypertension: Please make arrangements for the following patient to have a RHC with Dr. Garner on 03/05 at 9am. 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] 03/31/2025 1:30 PM EDT Procedure Cardiology [address] [address] Scleroderma, limited (HCC) [M34.9] 03/31/2025 2:00 PM EDT Office Visit Pulmonary Medicine [address] [address] Marlin Morris MD [address] [place] [address] EST PH pt 5 wk f/u w/Arturo 04/14/2025 10:00 AM EDT Office Visit Rheumatology [address] [address] Debra Ordonez MD [address] [place] [address] 6month follow up per walk up documented as of this encounter Visit Diagnoses Not on filedocumented in this encounter Care Teams Pediatric Neurologist Relationship Specialty Start Date End Date Beau José DO [address] [place] [address] PCP - General Family Medicine 06/02/20 documented as of this encounter
--- OUTSIDE RECORDS SUMMARY | 2025-03-03 09:10 | XMS_ITS | Clinical Summary ---
Author Organization [employer] s tem Address [id number] [address] [place] [address] Care Team Providers Care Manipulator Operator Name Role Phone LyricBeau moreira Primary Care Provider + [phone] Allergies Active Allergy Reactions Criticality Noted Date Comments Celecoxib Hives High 09/12/2014 Medications celecoxib (CeleBREX) 200 mg capsule 1 capsule with food 2 Active multivit with minerals/lutein (MULTIVITAMIN 50 PLUS ORAL) Active busPIRone (BUSPAR) 5 mg tablet buspirone 5 mg tablet take 1 tablet by mouth twice a day Active PARoxetine (PAXIL) 10 mg tablet Take 1 tablet (10 mg total) by mouth in the morning. 30 tablet 2 Active ondansetron ODT (ZOFRAN ODT) 4 mg disintegrating tabletIndications: Nausea Dissolve 1 tablet (4 mg total) on tongue every 8 (eight) hours as needed for nausea or vomiting. 20 tablet 2 Active NIFEdipine XL (PROCARDIA XL) 60 mg 24 hr tablet Take 1 tablet (60 mg total) by mouth. Active esomeprazole (NexIUM) 40 mg capsule TAKE 1 CAPSULE BY MOUTH IN THE MORNING and then TAKE 1 CAPSULE BY MOUTH BEFORE bedtime 60 capsule 5 5 Active Active Problems Problem Noted Date Diagnosed Date Post-void dribbling 02/14/2023 Hallux valgus (acquired), right foot 02/14/2023 Hallux valgus (acquired), left foot 02/14/2023 Dyspareunia in female 02/14/2023 Disorder of breast 02/14/2023 Bowel incontinence 02/14/2023 Acute pain of left knee 02/14/2023 Abnormal cytological finding s in specimens from other organs, systems and tissues 02/14/2023 Radial styloid tenosynovitis 09/20/2022 Sprain of wrist 09/20/2022 Localized, primary osteoarthritis of hand 2021 Unilateral primary osteoarthritis, left knee 12/2020 Perioral dermatitis 06/05/2021 Difficult or painful urination 06/05/2021 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 Calcinosis 07/24/2020 Fibromyalgia 06/03/2020 Raynaud's phenomenon without gangrene 02/26/2020 Limited scleroderma 02/26/2020 Mitral valve prolapse 02/24/2020 Migraine 02/24/2020 Irritable bowel syndrome 02/24/2020 Depressive disorder 02/24/2020 Gastroesophageal reflux disease with ulceration 01/06/2020 Ulcerative esophagitis 12/01/2018 Esophageal dysmotility 01/01/2017 Posttraumatic stress disorder 03/11/2016 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 Cyst of ovary 03/11/2016 Anxiety 03/11/2016 Other synovitis and tenosynovitis, unspecified h and 2014 CREST variant of scleroderma Resolved Problems Problem Noted Date Diagnosed Date Resolved Date Smoker 06/03/2020 08/21/2024 Puncture wound of right arm with complication 01/19/20 16 08/16/2023 Closed fracture of distal end of radius 03/18/2014 08/16/2023 Encounters Date Type Department Care Team Description 01/08/2025 Telephone [facility] - [facility] [address] [place] [address] Faviola Gorman CMA from Last 3 Months Immunizations Immunization Administration Dates Next Due Tdap 06/21/2019,02/10/2012 Family History Medical History Relation Name Comments ADD / ADHD Daughter Depression Daughter GI problems Daughter Scoliosis Daughter Heart disease Father at age 81 Prostate cancer Father Cerebral aneurysm Half Sister 1 Lung disease Half Sister 1 Heart failure Half Sister 2 Schizophrenia Maternal Aunt Stroke Maternal Grandfather Arthritis Mother Depression Mother Diabetes Mother Diverticulitis Mother with perforat ed colon giant cell arteritis Mother Breast cancer Paternal Aunt Bone cancer Paternal Grandfather Heart disease Paternal Grandfather No Known Problems Sister Relation Name Status Comments Daughter Father Half Sister 1 Alive Half Sister 2 Alive Maternal Aunt Maternal Grandfather Mother Alive Paternal Aunt Paternal Grandfather Sister Social History Tobacco Use Types Packs/Day Years Used Date Smoking Tobacco: Former Cigarettes 0.5 15 Smokeless Tobacco: Never Tobacco Cessation:Counseling Given: Not Answered Alcohol Use Standard Drinks/Week Comments Yes 0 (1 standard drink = 0.6 oz pur e alcohol) occasional [facility] Utilities Answer Date Recorded In the past 12 months has e electric, gas, oil, or water company threatened to shut off services in your [...] often do you attend chur ch or denominational services? Never 08/11/2022 Do you belong to any clubs o r organizations such as zoroastrian groups, unions, fraternal or athletic groups, or [...] Answer Date Recorded Total Score 15 08/16/2023 [facility] of Occupat ional Health - Occupational Stress [...] Recorded Do you need help finding a [employer] career center and/or a training program? No [...] Sign Reading Time Taken Comments Blood Pressure 110/70 08/21/2024 9:29 AM EST Pulse 68 08/21/2024 9:29 AM EST Temperature 36.7 C (98.1 F) 08/21/2024 9:29 AM EST Respiratory Rate 18 08/21/2024 9:29 AM EST Oxygen Saturation 99% 08/21/2024 9:29 AM EST Inhaled Oxygen Concentration - - Weight 54.8 kg (120 lb 12.8 oz) 08/21/2024 9:29 AM EST Height 152.4 cm (5') 08/21/2024 9:29 AM EST Body Mass Index 23.59 08/21/2024 9:29 AM EST Plan of Treatment Upcoming Encounters Date Type Department Care Team (Late st Contact Info) Description 08/27/2025 9:00 AM EST Office Visit [facility] - Family Medicine [address] [place] [phone] Beau José DO [address], [facility] [place] [address] Health Maintenance Due Date Last Done Comments Depression Screening 08/16/2024 08/16/2023 Colon Cancer Screening 3 Yea r Cologuard 11/09/2024 11/09/2021 Mammogram 01/14/2025 01/15/2024, 11/24, 12/10/2021, Additional history exists Influenza Vaccine 05/26/2025 Pap Smear 07/13/2025 07/13/2022 Adult BMI Screening 08/21/2025 08/21/2024 Tobacco Screening 08/21/2025 08/21/2024 DTaP,Tdap and Td Vaccines (3 - Td or Tdap) 06/21/2029 06/21/2019, 02/10/2012 Medical Devices Not on file Procedures Procedure Name Priority Date/Time Associated Diagnosis Comments MAMMOGRAPHY Routine 01/15/2024 11:47 AM EDT HM COLOGUARD Routine 11/09/2021 4:07 PM EST from Last 3 Months or Most Recently Relevant to Health Maintenance Results * MAMMOGRAPHY (01/15/2024 11:47 AM EDT) Anatomical Region Laterality Modality Other us Scanning Provider External HEALTH MAINTENANCE Fi nal Result * HM COLOGUARD (11/09/2021 4:07 PM EST) us Beau José DO HEALTH MAINTENANCE Final Res ult MANUALLY TRANSCRIBED RESULTS from Last 3 Months or Most Recently Relevant to Health Maintenance Insurance ANTHEM Care Teams Manipulator Operator Relationship Specialty Start Date End Date Beau José DO [address], [place] [address] PCP - General Family Medicine 09/06/22
--- OUTSIDE RECORDS SUMMARY | 2025-03-03 09:10 | XMS_ITS | Encounter Summary ---
Author [facility] [employer] [facility] Address [id number] [address] [place] [address] Care Team Providers Care Paint Roller Covers Supervisor Name Role Phone LyricBeau moreira Primary Care Provider + [phone] Encounter Details Date Type Department Care Team (Late st Contact Info) Description 01/15/2024 Orders Only [facility] - Family Medicine [address] [place] [phone] External, Scanning Provider Social History Tobacco Use Types Packs/Day Years Used Date Smoking Tobacco: Every Day Cigarettes 0.5 15 Smokeless Tobacco: Never Alcohol Use Standard Drinks/Week Comments Yes 0 (1 standard drink = 0.6 oz pur e alcohol) occasional [facility] Utilities Answer Date Recorded In the past 12 months has th e electric, gas, oil, or water company [...] often do you attend chur ch or gnosticism services? Never 08/11/2022 Do you belong to any clubs o r organizations such as buddhism groups, unions, fraternal or athletic groups, or [...] Answer Date Recorded Total Score 15 08/16/2023 [facility] of Occupat ional Health - Occupational Stress [...] Do you need help finding a l al career center and/or a training program? No [...] a purpose and direction in my life. Ap gly Agree 08/11/2022 Comments Unknown Sex and [...] - Family Medicine [address] [place] [address] Beau José DO [address] [facility] [place] [address] documented as of this encounter Procedures Procedure Name Priority Date/Time Associated Diagnosis Comments HM MAMMOGRAPHY Routine 01/15/2024 11:47 AM EDT documented in this encounter Results * HM MAMMOGRAPHY (01/15/2024 11:47 AM EDT) Anatomical Region Laterality Modality Other us Scanning Provider External HEALTH MAINTENANCE Fi nal Result documented in this encounter Visit Diagnoses Not on filedocumented in this encounter Additional Health Concerns Assessment Noted Time PHQ-9 Depression Total Score: 15 023 8:37 AM EST documented as of this encounter Care Teams Paint Roller Covers Supervisor Relationship Specialty Start Date End Date Beau José DO [address] [employer] [place] [address] PCP - General Family Medicine 09/06/22 documented as of this encounter
--- OUTSIDE RECORDS SUMMARY | 2025-03-03 09:10 | XMS_ITS | Encounter Summary ---
Author Organization [facility] Address [facility] [id number] [address] [place] [address] Care Team Providers Care Hospitality Coordinator Name Role Phone Beau José DO Primary Care Provider + [phone] Reason for Visit * Reason Comments Med Refill Encounter Details Date Type Department Care Team (Late st Contact Info) Description 2023 Refill [facility] - Family Medicine [address] [place] [address] Beau José DO [address], [facility] [place] [address] Social History Tobacco Use Types Packs/Day Years Used Date Smoking Tobacco: Every Day Cigarettes 0.5 15 Smokeless Tobacco: Never Alcohol Use Standard Drinks/Week Comments Yes 0 (1 standard drink = 0.6 oz pur e alcohol) occasional [facility] Utilities Answer Date Recorded In the past 12 months has [employer], [employer], oil, or water [employer] threatened to shut off services in your [...] often do you attend chur ch or shinto services? Never 08/11/2022 Do you belong to any clubs o r organizations such as christian groups, unions, fraternal or athletic groups, or [...] Answer Date Recorded Total Score 15 08/16/2023 [facility] Questionnaire Answer Date Recorded [...] encounter Miscellaneous Notes * Telephone Encounter - Beau José DO - 2023 7:41 AM EST Dose increased documented in this encounter Plan of Treatment Upcoming Encounters Date Type Department Care Team (Late st Contact Info) Description 08/27/2025 9:00 AM EST Office Visit [facility] - Family Medicine [address] [place] [address] Beau José DO [address], [facility] [place] [address] documented as of this encounter Visit Diagnoses Not on filedocumented in this encounter Additional Health Concerns Assessment Noted Time PHQ-9 Depression Total Score: 15 023 8:37 AM EST documented as of this encounter Care Teams Hospitality Coordinator Relationship Specialty Start Date End Date Beau José DO [address] [place] [address] PCP - General Family Medicine 09/06/22 documented as of this encounter
--- OUTSIDE RECORDS SUMMARY | 2025-03-03 09:10 | XMS_ITS | Encounter Summary ---
Author Organization [facility] Address [facility] [id number] [address] [place] [address] Care Team Providers Care Wrapping Machine Operator Name Role Phone Beau José DO Primary Care Provider + [phone] Encounter Details Date Type Department Care Team (Late st Contact Info) Description 08/19/2023 Orders Only [facility] - Family Medicine [address] [place] [phone] Beau José DO [address], [facility] [address] Social History Tobacco Use Types Packs/Day Years Used Date Smoking Tobacco: Every Day Cigarettes 0.5 15 Smokeless Tobacco: Never Alcohol Use Standard Drinks/Week Comments Yes 0 (1 standard drink = 0.6 oz pur e alcohol) occasional [facility] Utilities Answer Date Recorded In the past 12 months has [employer], gas, oil, or water [employer] threatened to shut off services in your [...] often do you attend chur ch or scientology services? Never 08/11/2022 Do you belong to any clubs o r organizations such as yazdanism groups, unions, fraternal or athletic groups, or [...] Answer Date Recorded Total Score 15 08/16/2023 [facility] - Occupational Stress Questionnaire Answer Date [...] - Family Medicine [address] [place] [address] Beau José DO [address] [facility] [place] [address] documented as of this encounter Visit Diagnoses Not on filedocumented in this encounter Additional Health Concerns Assessment Noted Time PHQ-9 Depression Total Score: 15 023 8:37 AM EST documented as of this encounter Care Teams Wrapping Machine Operator Relationship Specialty Start Date End Date Beau José DO [address] [facility] [place] [address] PCP - General Family Medicine 09/06/22 documented as of this encounter
--- OUTSIDE RECORDS SUMMARY | 2025-03-03 09:10 | XMS_ITS | Encounter Summary ---
Author Organization [facility] Address [address] [place] [address] Care Team Providers Care Body Care Manager Name Role Phone Beau José DO Primary Care Provider Source Comments In the event this information is protected by the Federal Confidentiality of Alcohol and Drug AbusePatient Records regulations: The Federal rules restrict any use of the information to criminally investigate or prosecute any alcohol or drug abuse patient.[facility] Encounter Details Date Type Department Care Team (Late st Contact Info) Description 01/01/2025 Get Medical Advice Rheumatology [address] [place] [address] Debra Ordonez MD [address] [place], [place] [id number] Test results Social History Tobacco Use Types [...] is lower risk 4 02/01/2023 Data from: https://www.neighborhoodatlas.medicine.[facility]/. Last address used for calculation [...] AM EDT Office Visit Pulmonary Medicine [address] [place] [address] Pulmonary Hypertension: Please make arrangements for the following patient to have a RHC with Dr. Garner on 03/05 at 9am. 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] 03/31/2025 1:30 PM EDT Procedure Cardiology [address] [address] Scleroderma, limited (HCC) [M34.9] 03/31/2025 2:00 PM EDT Office Visit Pulmonary Medicine [address] [place] [address] Marlin Morris MD [address] [place] [address] EST PH pt 5 wk f/u w/Arturo 04/14/2025 10:00 AM EDT Office Visit Rheumatology [address] [address] Debra Ordonez MD [address] [place] [address] 6month follow up per walk up documented as of this encounter Visit Diagnoses Not on filedocumented in this encounter Care Teams Body Care Manager Relationship Specialty Start Date End Date Beau José DO [address] [facility] [place] [place] [address] PCP - General Family Medicine 06/02/20 documented as of this encounter
--- OUTSIDE RECORDS SUMMARY | 2025-03-03 09:10 | XMS_ITS | Encounter Summary ---
Author Organization [employer] s tem Address [id number] [address] [place] [address] Care Team Providers Care Performance Test Architect Name Role Phone LyricBeau moreira Primary Care Provider + [phone] Encounter Details Date Type Department Care Team (Late st Contact Info) Description 10/09/2023 [facility]phone [facility] [address] [place] [address] Ana Sales, MAICOL Social History Tobacco Use Types Packs/Day Years Used Date Smoking Tobacco: Every Day Cigarettes 0.5 15 Smokeless Tobacco: Never Alcohol Use Standard Drinks/Week Comments Yes 0 (1 standard drink = 0.6 oz pur e alcohol) occasional [facility] Utilities Answer Date Recorded In the [...] often do you attend chur ch or amish services? Never 08/11/2022 Do you belong to any clubs o r organizations such as advent groups, unions, fraternal or athletic groups, or [...] Answer Date Recorded Total Score 15 08/16/2023 [facility] of Occupat ional Health - Occupational Stress [...] Recorded Do you need help finding a [facility] career center and/or a training program? [...] purpose and direction in my life. Ap cook Agree 08/11/2022 Comments Unknown Sex and Gender Information Value Date Recorded Sex Assigned at Not on file Legal Sex Female 11:46 AM EDT Gender Identity Not on file Sexual Orientation Not on file documented as of this encounter Miscellaneous Notes * Telephone Encounter - Ana Sales CMA - 10/09/2023 11:35 AM EST Pt called you had put her on restrictions, she feels she needs to be written off work as its suppose to be colder the next few days . She stated she worked Monday and it made her flare up everything hurts and in a lot of pain and couldn't sleep . Does she need to be seen or can you just write a note ? * Telephone Encounter - Beau José DO - 10/09/2023 11:35 AM EST I can just write a note. Does she need any specific dates on it? If so what are the dates. * Telephone Encounter - Yvonne Saeed - 10/09/2023 11:35 AM EST Patient called back and she said for the rest of the week return back on Monday * Telephone Encounter - Beau José DO - 10/09/2023 11:35 AM EST Okay note printed documented in this encounter Plan of Treatment Upcoming Encounters Date Type Department Care Team (Late st Contact Info) Description 08/27/2025 9:00 AM EST Office Visit [facility] - Family Medicine [address] [place] [address] Beau José DO [address], [place] [address] documented as of this encounter Visit Diagnoses Not on filedocumented in this encounter Additional Health Concerns Assessment Noted Time PHQ-9 Depression Total Score: 15 08/16/ 023 8:37 AM EST documented as of this encounter Care Teams Performance Test Architect Relationship Specialty Start Date End Date Beau José DO [address], [facility] [place] [address] PCP - General Family Medicine 09/06/22 documented as of this encounter
--- OUTSIDE RECORDS SUMMARY | 2025-03-03 09:10 | XMS_ITS | Encounter Summary ---
Author Organization [facility] Address [facility] [place] [address] Care Team Providers Care Childhood Development Teacher Name Role Phone Beau José DO Primary Care Provider Source Comments In the event this information is protected by the Federal Confidentiality of Alcohol and Drug AbusePatient Records regulations: The Federal rules restrict any use of the information to criminally investigate or prosecute any alcohol or drug abuse patient.[facility] Encounter Details Date Type Department Care Team (Late st Contact Info) Description 02/24/2025 Abstract Neurology [address] [place] [address] [facility] [address] [place] [address] Social History Tobacco Use Types Packs/Day Years Used Date Smoking Tobacco: Former Cigarettes Q uit: 10/14/2019 Smokeless Tobacco: Former Alcohol Use Standard Drinks/Week Comments Not Currently 0 (1 standard drink = 0.6 oz pur e alcohol) Rarely AUDIT-C Answer Date Recorded Q1: How often do you have a drink containing alc ohol? Monthly or less 07/01/2020 Average Number of Drinks Not on file Frequency of Binge Drinking Not on file 03/2020 PHQ-2 Answer Date Recorded PHQ-2 score 3 10/05/2024 Area Deprivation Index Answer Date Isaac rded National Score (1-100), lower number is lower ri sk 59 02/01/2023 State Score (1-10), lower number is lower risk 4 02/01/2023 Data from: https://www.neighborhoodatlas.medicine.[facility]/. Last address used for calculation [...] AM EDT Office Visit Pulmonary Medicine [address] [id number] Pulmonary Hypertension: Please make arrangements for the following patient to have a RHC with Dr. Garner on 03/05 at 9am. 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] 03/31/2025 2:00 PM EDT Office Visit Pulmonary Medicine [address] [address] Marlin Morris MD [address] [address] EST PH pt 5 wk f/u w/Arturo 04/14/2025 10:00 AM EDT Office Visit Rheumatology [address] [address] Debra Ordonez MD [address] [place] [address] 6month follow up per walk up documented as of this encounter Visit Diagnoses Not on filedocumented in this encounter Care Teams Childhood Development Teacher Relationship Specialty Start Date End Date Beau José DO [address] [place] [address] PCP - General Family Medicine 06/02/20 documented as of this encounter
--- OUTSIDE RECORDS SUMMARY | 2025-03-03 09:10 | XMS_ITS | Encounter Summary ---
Author Organization [employer] Address [id number] [address] [place] [address] Care Team Providers Care Associate Professor Of Medicine Name Role Phone Beau José Primary Care Provider + [phone] Encounter Details Date Type Department Care Team (Late st Contact Info) Description 09/21/2022 Orders Only [facility] - Family Medicine [address] [place] [phone] Stefany Cheek MA Vitamin D deficiency Social History Tobacco Use Types Packs/Day Years [...] often do you attend chur ch or baptist services? Never 08/11/2022 Do you belong to [...] Answer Date Recorded Total Score 8 08/11/2022 [facility] of Occupat ional Health - [...] Recorded Do you need help finding a [employer] career center and/or a training program? [...] have Coronavirus / COVID-19? No / Unsure 09/20/2022 2:49 PM EST documented as of this encounter Plan of Treatment Upcoming Encounters Date Type Department Care Team (Late st Contact Info) Description 08/27/2025 9:00 AM EST Office Visit [facility] - Family Medicine [address] [place] [address] Beau José DO [address], [place] [address] documented as of this encounter Procedures Procedure Name Priority Date/Time Associated Diagnosis Comments VITAMIN D 25 HYDROXY Routine 09/15/2022 Vitamin D deficiency documented in this encounter Results * Vitamin D 25 hydroxy (09/15/2022) External Vitamin D 25-Hydroxy 62.8 [employer] Blood 09/15/2022 us Beau José DO LAB BLOOD ORDERABLES Final R esult [employer] documented in this encounter Visit Diagnoses Diagnosis Vitamin D deficiency documented in this encounter Additional Health Concerns Assessment Noted Time PHQ-9 Depression Total Score: 8 08/11/20 22 1:50 PM EST documented as of this encounter Care Teams Associate Professor Of Medicine Relationship Specialty Start Date End Date Beau José DO [address], [facility] [place] [address] PCP - General Family Medicine 09/06/22 documented as of this encounter
--- OUTSIDE RECORDS SUMMARY | 2025-03-03 09:10 | XMS_ITS | Encounter Summary ---
Author Organization [facility] Address [address] [place] [id number] Care Team Providers Care Vacuum Cooker Operator Name Role Phone Beau José DO Primary Care Provider Source Comments In the event this information is protected by the Federal Confidentiality of Alcohol and Drug AbusePatient Records regulations: The Federal rules restrict any use of the information to criminally investigate or prosecute any alcohol or drug abuse patient.[facility] Encounter Details Date Type Department Care Team (Late st Contact Info) Description 01/29/2025 Results Follow-Up Provider Adult [address] [place] [address] Marlin Morris MD [address] [facility] [address] [place] [address] Social History Tobacco Use Types [...] is lower risk 4 02/01/2023 Data from: https://www.neighborhoodatlas.medicine.[facility]/. Last address used for calculation [...] AM EDT Office Visit Pulmonary Medicine [address] [place] [address] Pulmonary Hypertension: Please make arrangements for the following patient to have a RHC with Dr. Garner on 03/05 at 9am. 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
--- OUTSIDE RECORDS SUMMARY | 2025-03-03 09:10 | XMS_ITS | Encounter Summary ---
Author Organization [facility] Address [address] [place] [address] Care Team Providers Care Correctional Supervisor Lieutenant Name Role Phone Beau José DO Primary Care Provider Source Comments In the event this information is protected by the Federal Confidentiality of Alcohol and Drug AbusePatient Records regulations: The Federal rules restrict any use of the information to criminally investigate or prosecute any alcohol or drug abuse patient.[facility] Encounter Details Date Type Department Care Team (Late st Contact Info) Description 02/28/2025 Orders Only Pulmonary Medicine [address] [address] [place] [address] [address] [place], [place] [id number] SOBOE (shortness of breath on exertion) (Primary Dx) Social History Tobacco Use Types Packs/Day Years [...] is lower risk 4 02/01/2023 Data from: https://www.neighborhoodatlas.medicine.[facility].edu/. Last address used for calculation [address] 02/01/2023 Comments No Sex and Gender Information Value Date Recorded Sex Assigned at Not on file Legal Sex Female 12:02 PM EDT Gender Identity Not on file Sexual Orientation Not on file documented as of this encounter Plan of Treatment Upcoming Encounters Date Type Department Care Team ([facility] st Contact Info) Description 03/05/2025 9:00 AM EDT Office Visit Pulmonary Medicine [address] [place] [address] Pulmonary Hypertension: Please make arrangements for the following patient to have a RHC with Dr. Garner on 03/05 at 9am. 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] 03/31/2025 2:00 PM EDT Office Visit Pulmonary Medicine [address] [address] Marlin Morris MD [address] [place] [address] EST PH pt 5 wk f/u w/Arturo 04/14/2025 10:00 AM EDT Office Visit Rheumatology [address] [address] Debra Ordonez MD [address] [place] [address] 6month follow up per walk up Scheduled Orders Name Type Priority Associated Diagnoses Orde r Schedule ARTERIAL BLOOD GASES Lab Routine SOBOE (shortness of breath on exertion) Expected: 02/28/2025, Expires: 02/28/2026 VENOUS BLOOD GASES Lab Routine SOBOE (shortness of breath on exertion) Expected: 02/28/2025, Expires: 02/28/2026 documented as of this encounter Visit Diagnoses Diagnosis SOBOE (shortness of breath on exertion)- Primary Shortness of breath documented in this encounter Care Teams Correctional Supervisor Lieutenant Relationship Specialty Start Date End Date Beau José DO [address] [place] [address] PCP - General Family Medicine 06/02/20 documented as of this encounter
--- NOTE | 2025-03-03 09:12 | MM_ITS ---
Patient Name: EMMETT LE MR#: [id number] : 1975 Exam Date: 03/03/2025 Ordering Doctor: DR ALBERTO AGUAYO RADIOLOGY REPORT PROCEDURE: MM TOMOSYNTHESIS SCREENING BI COMPARISON: MM TOMOSYNTHESIS SCREENING BI, 01/15/2024. MG MAMM SCREEN 3D RUTHIE CAD, 12/15/2022. MG MAMM SCREEN 3D RUTHIE CAD, 12/10/2021. MAMMO RUTHIE SCREEN, 01/18/2005. INDICATIONS: Screening Calculator Name NCI Breast Cancer Risk Assessment Tool 5 Year Breast Cancer Risk 1.30% Lifetime Breast Cancer Risk 12.30% Personal Breast Cancer No Personal Ovarian Cancer No Treatments None Family Cancers Father with prostate cancer at age ~70. LOCATION: [facility] BREAST COMPOSITION: The breasts are heterogeneously dense,which may obscure small masses. FINDINGS: RIGHT BREAST: No significant suspicious finding. LEFT BREAST: No significant suspicious finding. DIAGNOSTIC CATEGORY 1--NEGATIVE. RECOMMENDATIONS: ROUTINE MAMMOGRAM AND CLINICAL EVALUATION IN 12 MONTHS. PLEASE NOTE: A NORMAL MAMMOGRAM DOES NOT EXCLUDE THE POSSIBILITY OF BREAST CANCER. A CLINICALLY SUSPICIOUS PALPABLE LUMP SHOULD BE BIOPSIED. Dictated by: Konstantin Murray DO on 03/03/2025 at 11:33 Approved by: Konstantin Murray DO on 03/03/2025 at 11:35
== END 2025-03-03 09:05 | disposition home or self-care (01) ==
LOC: MAMMO 09:07
PROVIDERS: PCP Family Medicine; Visit Provider Obstetrics & Gynecology
DX: Z12.31 Encounter for screening mammogram for malignant neoplasm of breast (principal); Z80.42 Family history of malignant neoplasm of prostate
CPT/HCPCS: 77063; 77067

== ENCOUNTER 2025-05-15 15:27 | Emergency (ER) | payer OTHER, SELFPAY ==
[2025-05-15 15:43] VITALS: BP 121/71; PULSE 58; TEMP 36.8; O2SAT 98; BMI 23.4
--- NOTE | 2025-05-15 15:56 | ED.UPPEXIN1 ---
HPI HPI - Extremity Injury (Upper) General Chief Complaint: Extremity Injury, Upper Stated Complaint: UPPER EXTERMITY INJURY Time Seen by Provider: 05/15/25 15:51 Mode of arrival: walk-in Limitations: no limitations History of Present Illness HPI narrative: 8 year old female presents to the ED for an injury to her left ring finger. States her ring became caught on a bolt in her mail truck today while she was getting out of the truck. States it pulled on the digit. Reports her ring was cut off at home prior to arrival in the ED. She has an abrasion to the digit which she states is from her ring. Denies weakness, N/T. Her tetanus status is not up to date. Related Data Home Medications ?Medication ?Instructions ?Recorded ?Confirmed esomeprazole magnesium 40 mg 40 mg PO BID 05/15/25 05/15/25 capsule,delayed release furosemide 20 mg tablet 20 mg PO DAILY 05/15/25 05/15/25 metoprolol succinate 25 mg 25 mg PO DAILY 05/15/25 05/15/25 tablet,extended release 24 hr nifedipine 60 mg tablet,extended 60 mg PO DAILY 05/15/25 05/15/25 release 24 hr paroxetine HCl 10 mg tablet 5 mg PO HS 05/15/25 05/15/25 Allergies Allergy/AdvReac Type Severity Reaction Status Date / Time No Known Drug Allergies Allergy Verified 05/15/25 15:43 Opioid HPI Opioid Management Most Recent Pain and Opioid Data: Last Pain Scale 7 Today, 16:05 Review of Systems ROS Constitutional Denies: fever or chills Cardiovascular Denies: chest pain Respiratory Denies: shortness of breath Musculoskeletal Reports: extremity pain and extremity swelling Integumentary/Breast Reports: skin tenderness, skin swelling and sores Neurological Denies: numbness in extremities or weakness in extremities PFSH PFSH Social History Little interest or pleasure in doing things: not at all Feeling down, depressed, or hopeless: not at all Exam Constitutional Vital Signs, click to edit/add: Last Vital Signs Temp 98.2 F 05/15/25 15:43 Pulse 58 L 05/15/25 15:43 Resp 16 05/15/25 15:43 BP 121/71 05/15/25 15:43 Pulse Ox 98 05/15/25 15:43 Common normals: no apparent distress and oriented x3 General appearance: cooperative Eye Common normals: conjunctivae normal and no scleral icterus Neck & C-Spine Common normals: supple Chest Chest: symmetrical chest wall rise Respiratory Common normals: normal respiratory effort Effort & inspection: able to speak in complete sentences and symmetric chest movement Cardio Common normals: regular rate Peripheral pulses: radial pulses present and ulnar pulses present Extremity Other: Swelling to left proximal ring finger. There is tenderness to the digit. Distal sensation intact. No obvious deformity. Decreased flexion at the PIP joint due to pain. Abrasion to anterior proximal and medial proximal aspects of the digit. No active bleeding. Neuro Common normals: oriented x3 and moves all extremities Sensorium/orientation: awake and alert Speech: speech normal Course Vital Signs Vital signs: Vital Signs Temperature 98.2 F 05/15/25 15:43 Pulse Rate 58 L 05/15/25 15:43 Respiratory Rate 16 05/15/25 15:43 Blood Pressure 121/71 05/15/25 15:43 Pulse Oximetry 98 05/15/25 15:43 Temperature 98.2 F 05/15/25 15:43 Pulse Rate 58 L 05/15/25 15:43 Respiratory Rate 16 05/15/25 15:43 Blood Pressure 121/71 05/15/25 15:43 Pulse Oximetry 98 05/15/25 15:43 MDM - Extremity Injury (Upper) MDM Narrative Medical decision making narrative: X-ray showed no acute findings. Her tetanus status was updated today. She was given an ice pack here. She declined medication for discomfort; she prefers Tylenol or Advil at home for pain. A finger splint was applied. The application was checked and was appropriate; the LUE remained NVI. Follow up with occupational health for a recheck, further evaluation and treatment. Medical Records Attestation: I reviewed the patient's medical records. Imaging Data XR: Attestation: I have reviewed the pertinent imaging results. Radiologist's impression: ITS Impressions Hand X-Ray 05/15/25 16:15 IMPRESSION: No acute displaced fracture. Impression dictated by: Konstantin Murray M.D. 05/15/2025 4:34 PM Dictation Location: [facility] Electronically authenticated by: [id number] Y Date: 05/15/2025 16:34 Discharge Plan Discharge Chief Complaint: Extremity Injury, Upper Clinical Impression: Finger sprain, Contusion of finger, Abrasion of finger Patient Disposition: Home, Self-Care Time of Disposition Decision: 16:44 Condition: Good Mode of Transportation: Private Vehicle Prescriptions / Home Meds: No Action esomeprazole magnesium 40 mg capsule,delayed release(DR/EC) 40 mg PO BID furosemide 20 mg tablet 20 mg PO DAILY metoprolol succinate 25 mg tablet extended release 24 hr 25 mg PO DAILY nifedipine 60 mg tablet extended release 24hr 60 mg PO DAILY paroxetine HCl 10 mg tablet 5 mg PO HS Print Language: Panamanian Instructions: Contusion in Adults (ED), Finger Sprain (ED), Abrasion (ED) Additional Instructions: Follow up with occupational health for a recheck, further evaluation and treatment. Wear the finger splint as directed for comfort. Referrals: [facility] [Primary Care Provider, Family Practice] - 1 week
--- NOTE | 2025-05-15 16:15 | XR_ITS ---
The [address] [address] Patient Name: EMMETT LE MRN: [id number] date: 1975 Sex: F Assigned Patient Location: ER Current Patient Location: ER Accession/Order Number: [id number] Exam Date: 05/15/2025 16:10 Report Date: 05/15/2025 16:34 At the request of: MIRANDA STILL Procedure: XR hand LT min 3V 3 views left hand plain film COMPARISON: None HISTORY: Left fourth digit injury. ACUTE FINDINGS: None DEGENERATIVE CHANGE: Unremarkable SOFT TISSUE FINDINGS: Fourth digit soft tissue swelling. JOINT EFFUSION: None POSTOP CHANGES: None BONY MINERALIZATION: Adequate XR/XR hand LT min 3V IMPRESSION: No acute displaced fracture. Impression dictated by: Konstantin Murray M.D. 05/15/2025 4:34 PM Dictation Location: [place] [address] Electronically authenticated by: [id number] Y Date: 05/15/2025 16:34
[2025-05-15] MEDS: DIPHTH,PERTUSS(ACELL),TET VAC 0.5 ML SYRINGE IM (16:53)
== END 2025-05-15 17:05 | disposition home or self-care (01) ==
PROVIDERS: Emergency Provider Emergency Medicine; PCP Family Medicine
DX: S63.615A Unspecified sprain of left ring finger, initial encounter (principal); X58.XXXA Exposure to other specified factors, initial encounter; S60.042A Contusion of left ring finger without damage to nail, initial encounter; S60.415A Abrasion of left ring finger, initial encounter; Z23 Encounter for immunization
CPT/HCPCS: 29130; 73130; 90471; 99284